=== PATIENT | male | born 1945 | race Caucasian/White ===

== ENCOUNTER 2020-11-24 09:13 | Outpatient (CLI) | payer MEDICARE, OTHER, SELFPAY | END 2020-11-24 09:14 | disposition home or self-care (01) | LOC: ANHCOVIDVC 09:13 | PROVIDERS: PCP Family Medicine | DX: Z23 Encounter for immunization (principal) | CPT/HCPCS: 0001A; 91300 ==

== ENCOUNTER 2020-12-15 09:09 | Outpatient (CLI) | payer MEDICARE, OTHER, SELFPAY | END 2020-12-15 09:10 | disposition home or self-care (01) | LOC: ANHCOVIDVC 09:09 | PROVIDERS: PCP Family Medicine | DX: Z23 Encounter for immunization (principal) | CPT/HCPCS: 0002A; 91300 ==

== ENCOUNTER 2025-04-12 12:36 | Inpatient (IN) | payer MEDICARE, MEDICAID, OTHER, SELFPAY ==
--- OUTSIDE RECORDS SUMMARY | 2024-04-19 09:25 | XMS_ITS | Encounter Summary ---
Author Name [facility] [place] Organization [facility] [place] [place] Address [address], [place] [address] Care Team Providers Care Structural Engineer Name Role Phone MAKI CHRIS Primary Care Provider Unavailabl e Insurance Providers: All historical and current Section Date Range: From patient's date of to the date document was created. This section includes the names of all active insurance providers for the patient. Insurance Provider Type of Coverage Plan Name Start of Policy Coverage End of Policy Coverage Group Number Member ID Insurance Provider's Telephone Number Policy Beck's Name Patient's Relationship to Policy Beck Selected Encounter This section includes the information on record at [place] for the Encounter. Date/Time Encounter Type Encounter Description Reason Pro vider Source Apr 19, 2024 02:25 PM Outpatient Encounter ADMIN PAT ACTIVTIES (MASNONCT) IHE Encounter Template Text not used by [place] Plan of Treatment: Future Appointments (+ 6 months) and Future Tests (+/- 45 days) The Plan of Treatment section includes future care activities for the patient from all [place] treatmentfacilities. This section includes future appointments and future orders which are active, pending or scheduled. Future Appointments This section includes appointments that were scheduled to occur 6 months from the date of the Encounter, up to a maximum of 20 appointments. The data comes from all [place] treatment facilities. Appointment Date/Time Appointment Type Appointme nt Facility Name Apr 26, 2024 11:00 AM AMBULATORY - NONE [facility] Jul 25, 2024 09:00 AM AMBULATORY - NONE [facility] Sep 10, 2024 11:20 AM AMBULATORY - NONE [facility] Advance Directives: All historical and current Section Date Range: From patient's date of to the date document was created. This section includes ALL of a patient's completed or amended [place] Advance and Rescinded Directives. The entries below indicate that a directive exists for the patient, but an actual copy is not included with this document. The data comes from all [place] facilities. Date Advance Directives Provider Source Feb 10, 2024 ADVANCE DIRECTIVE [facility] Encounter Notes: All associated encounter notes This section contains the clinical notes associated to the Encounter. Date/Time Encounter Note(s) Provider Source Apr 19, 2024 02:25 PM ADMINISTRATIVE NOT E: LOCAL TITLE: SCHEDULING NOTE ST STANDARD TITLE: ADMINISTRATIVE NOTE DATE OF NOTE: APR 19, 2024@14:25 ENTRY DATE: APR 19, 2024@14:25:11 AUTHOR: LORI WESTBROOK EXP COSIGNER: URGENCY: STATUS: COMPLETED Minimum Scheduling attempts to contact the [facility] have been made. RTC/Appt/Consult request will be discontinued after 14 days. Clinic: [facility] TK: Apr ADDITIONAL RESULTS FROM SCHEDULING ATTEMPTS: [facility] declined/refused-does not want care /deepak/ LORI WESTBROOK TE[employer]HE[employer] PRODUCTION MANUFACTURING WORKER Signed: 04/19/2024 14:25 LORI WESTBROOK [facility]
--- OUTSIDE RECORDS SUMMARY | 2024-09-10 06:20 | XMS_ITS | Encounter Summary ---
Author Name [facility] [place] Organization [facility] [place] Address [address] [place] [address] Care Team Providers Care Taxation Consultant Name Role Phone DOTMAKI ARTHUR Primary Care Provider Unavailabl e Insurance Providers: [...] section includes the information on record at [place] for the Encounter. Date/Time Encounter Type Encounter Description Reason Provider Source Sep 10, 2024 11:20 AM OFF/OP CNSLTJ NEW/EST MOD 40 ENDOCRINOLOGY ICD-10-CM E66.01 Morbid (severe) obesity due to excess calories CHRISTY MOYA Encounter Template Text not used by [place] Assessments - Encounter Diagnoses This section includes the primary and secondary diagnoses documented for the Encounter. Date/Time Primary/Secondary Diagnosis Diagnosis Name Provider Source Sep 11, 2024 07:55 AM PRIMARY Morbid (severe) obesity due to excess calories NIKKI LYONS [facility] Plan of Treatment: Future Appointments (+ 6 months) and Future Tests (+/- 45 days) The Plan of Treatment section includes future care activities for the patient [facility] This section includes future appointments and future orders which are active, pending or scheduled. Future Appointments This section includes appointments that were scheduled to occur 6 months from the date of the Encounter, up to a maximum of 20 appointments. The data comes from all [place] treatment facilities. Appointment Date/Time Appointment Type Appointme nt Facility Name Oct 31, 2024 08:30 AM AMBULATORY - NONE [facility] Jan 28, 2025 09:30 AM AMBULATORY - MEDICINE [facility] Feb 22, 2025 09:00 AM AMBULATORY - NONE [facility] Mar 04, 2025 02:00 PM AMBULATORY - SURGERY [facility] Vital Signs: All taken on the encounter date This section contains inpatient and outpatient Vital Signs collected on the date of the Encounter. Date/Time Temperature Pulse Blood Pressure Respiratory Rate SP02 Pain Height Weight Body Mass Index Source Sep 10, 2024 11:27 AM 97.9 108 132/84 20 95 0 285 39 [facility] Advance Directives: All historical and current Section Date Range: From patient's date of to the date document was created. This section includes ALL of a patient's completed or amended [place] Advance and Rescinded Directives. The entries below indicate that a directive exists for the patient, but an actual copy is not included with this document. The data comes from all [facility]. Date Advance Directives Provider Source Feb 10, 2024 ADVANCE DIRECTIVE GRADY HERNANDEZ [facility] Encounter Notes: All associated encounter notes This section contains the clinical notes associated to the Encounter. Date/Time Encounter Note(s) Provider Source Oct 18, 2024 12:06 PM PHYSICIAN LETTERS: LOCAL TITLE: PHYSICIAN LETTERS STANDARD TITLE: PHYSICIAN LETTERS DATE OF NOTE: OCT 18, 2024@12:06 ENTRY DATE: OCT 18, 2024@12:09:01 AUTHOR: HIPOLITO SALVADOR EXP COSIGNER: URGENCY: STATUS: COMPLETED [facility] [address] [place] [address] JAYLAN WISE [address] [place], [place] [id number] Dear Jaylan Wise: I am reaching out from the endocrinology team concerning the denial of wegovy for weight loss. There are oral medications for weight loss which can be considered in case you are willing to try one of those. I tried to reach you over the phone earlier today to discuss possible options. You can also go over these options on your next visit in November as well. Thank you, Dr. Salvador Sincerely, HIPOLITO SALVADOR ENDOCRINOLOGY FELLOW [facility]LAN [facility] Oct 16, 2024 01:00 PM ADDENDUM: LOCAL TITLE: Addendum STANDARD TITLE: ADDENDUM DATE OF NOTE: OCT 16, 2024@13:00:30 ENTRY DATE: OCT 16, 2024@13:00:31 AUTHOR: LAURYN SIGALA COSIGNER: URGENCY: STATUS: COMPLETED Returned a call from Mr. Wise and informed him the 09/10 PADR for Wegovy was declined. He's met with a creative coordinator and has another appointment with them on 10/31. He's to see JOHN PAUL aCllahan on 12/05. I asked him to let me alert the Endocrine team to his call, see if any oral Rx options are a possibility, and told him I'd call back with any update. /deepak/ Lauryn Sigala, RN, BSN REGISTERED NURSE Signed: 10/16/2024 13:03 Receipt Acknowledged By: 10/18/2024 12:05 /deepak/ HIPOLITO SALVADOR ENDOCRINOLOGY FELLOW 10/16/2024 20:09 /deepak/ CHRISTY GAYTAN Chief, Endocrinology 10/23/2024 09:58 /deepak/ MADELAINE Farley, MSN, RN Nurse Practitioner --- Original Document --- 09/10/24 ENDOCRINOLOGY OUTPATIENT CONSULT [facility]: ENDOCRINOLOGY OUTPATIENT VISIT HPI: JAYLAN WISE is a 79yo WHITE MALE 1995 kidney cancer s/p right nephrectomy [place] OA of knees. obesity venous stasis. BMI 38 129 kg NO LFTs available couldn't FIB-4 index. STOP-BAN points intermediate risk for moderate to severe REILLY. vet's daughter requesting weight loss medication, vet currently residing in long-term after a fall and subsequent hospital stay reports current weight >300 pounds with significant disability vet is essentially bedbound at this time known DJD of hips/knees. No history of kidney stones has lost about 30 lbs has been on physical therapy [place]. He needs knee replacement stop a pill because it was causing harm on his heart - Reported was on phentermine for about one month and then rehab MD discontinued. Vet reported today that he is allergic to peaches (gives him diarrhea). Vet currently at a SNF. He is getting all meals provided and on a regular diet. He is not making his own menu selections. He dislikes some of the food; avg. intake is 75-100% per meal. Fluid/Beverage intake: water; juice or Cristóbal-Aid with meals Food intake: consumes 3 meals/d and rarely snacks Breakfast: typically eggs, castillo/sausage; this AM had pancakes, sausage, and Cornflakes with milk Lunch: protein/vegetable/starch; vet does not recall what he ate yesterday Dinner: protein/vegetable/starch; last night had a ham sandwich and vegetable soup KNEE,RIGHT 3 VIEWS (RAD Detailed) CPT:88678 Proc Modifiers : RIGHT, LATERAL, Stand AP, [place] Reason for Study: chronic bilat knee pain Clinical History: Report Status: Verified Date Reported: OCT 20, 2023 Date Verified: OCT 20, 2023 Yeast Pusher E-Sig:/ES/RADHA NORMAN MD Report: 3 views COMPARISON: None No acute fracture or dislocation Mild tricompartmental osteoarthritis with joint space narrowing and osteophytes. Other: Chondrocalcinosis Impression: Tricompartmental osteoarthritis ROS: Constitutional: No fevers, chills or night sweats HEENT: No visual changes, hearing changes, sinus congestion, or sore throat CV: No chest pain, palpitations, dyspnea on exertion Respiratory: No shortness of breath, cough, or wheezing GI: No abdominal pain, nausea, vomiting, heartburn, diarrhea, constipation, melena, hematochezia : No hesitancy, urgency, no urinary frequency, nocturia, dysuria, hematuria, or incontinence Musculoskeletal: No joint pain or swelling Skin: No rashes or color changes Neuro: No headaches, lightheadedness, dizziness, focal weakness, or paresthesias Psych: Mood has been ___, denies depression and anxiety Endo: No symptoms of hypo/hyperthyroidism or hypo/hyperglycemia Allergies: PENICILLIN Medications: Active Outpatient Medications (excluding Supplies): Issue Date Status Last Fill Active Outpatient Medications Refills Expiration 1) ACETAMINOPHEN 325MG TAB Qty: 200 for 25 days ACTIVE Issue: 10/18/23 Sig: TAKE TWO TABLETS BY MOUTH FOUR TIMES A Refills: 4 Last : 10/19/23 DAY NEEDED CAUTION: DO NOT EXCEED 4000MG Expr : 10/18/24 PER DAY ACETAMINOPHEN (APAP) FROM ALL MEDS. Indication: FOR PAIN 2) CAPSAICIN 0.025% CREAM Qty: 60 for 30 days ACTIVE Issue: 10/18/23 Sig: APPLY LIBERALLY TO AFFECTED AREA(S) Refills: 3 Last : 10/19/23 FOUR TIMES A DAY NEEDED FOR EXTERNAL USE Expr : 10/18/24 ONLY. WASH HANDS AFTER APPLICATION. Indication: FOR PAIN 3) LIDOCAINE 5% OINT Qty: 35 for 30 days Sig: ACTIVE Issue: 10/18/23 APPLY LIBERALLY TO AFFECTED AREA(S) TWICE Refills: 5 Last : 10/19/23 DAILY NEEDED Expr : 10/18/24 Indication: FOR PAIN 4) PSYLLIUM ORAL PWD Qty: 1950 for 90 days Sig: ACTIVE Issue: 10/18/23 MIX AND DRINK 1 TABLESPOONFUL BY MOUTH ONCE Refills: 3 Last : 10/19/23 A DAY MIX IN GLASS OF WATER/JUICE. FLAVOR Expr : 10/18/24 SUBSTITUTIONS MAY/WILL OCCUR AND SPECIFIC VARIETIES WILL NOT BE PROVIDED. Indication: FOR FIBER SUPPLEMENTATION 5) ROSUVASTATIN CA 10MG TAB Qty: 45 for 90 days ACTIVE Issue: 10/18/23 Sig: TAKE ONE-HALF TABLET BY MOUTH EVERY Refills: 3 Last : 10/19/23 EVENING Expr : 10/18/24 Indication: FOR HIGH CHOLESTEROL 6) TRIAMCINOLONE ACETONIDE 0.1% OINT Qty: 454 ACTIVE Issue: 08/02/24 for 30 days Sig: APPLY SPARINGLY TO AFFECTED Refills: 3 Last : 08/02/24 AREA(S) EVERY MORNING (EXTERNAL USE ONLY) Expr : 08/03/25 Indication: FOR ATOPIC DERMATITIS Past Medical History: 1) HTN - Hypertension (SCT [id number]) 2) Morbid obesity 3) Personal history of primary malignant neoplasm of kidney SOCIAL HISTORY: Marital status: Served in [place]: ETOH: Occupation: FAMILY HISTORY: Mom: Dad: PHYSICAL EXAM: Vital Signs: Temperature: 97.9 F [36.6 C] (09/10/2024 11:27) Blood Pressure: 132/84 (09/10/2024 11:27) Pulse: 108 (09/10/2024 11:27) Respirations: 20 (09/10/2024 11:27) Weight: 285 lb [129.27 kg] (09/10/2024 11:27) Patient Weight History - Last Four 1. 285.0 lbs. / 129.3 kg. on SEP 10, 2024@11:27:17 2. 315.0 lbs. / 142.9 kg. on NOV 28, 2023@10:35:33 3. 323.0 lbs. / 146.5 kg. on OCT 18, 2023@13:27:16 4. 318.2 lbs. / 144.3 kg. on MAR 22, 2023@08:28:42 BMI: 38.7 GENERAL: No acute distress, Well developed, well nourished HEENT: EOMI, PERRL, sclera anicteric NECK: Supple, no cervical LAD, no thyromegaly CV: RRR, S1 S2, no S3, S4, murmur, no edema bilaterally RESP: regular, unlabored, clear to auscultation bilaterally GI: soft, non-tender, non-distended, +BS NEURO: strength equal bilaterally, patellar & Achilles reflex 2+ bilaterally PSYCH: pleasant, appropriate LABS: Comprehensive Metabolic Panel Results: SODIUM 139 mEq/L 03/22/2023 09:55 POTASSIUM 4.2 mEq/L 03/22/2023 09:55 CHLORIDE 105 mEq/L 03/22/2023 09:55 UREA NITROGEN 14 mg/dL 03/22/2023 09:55 CREATININE 1.12 mg/dL 03/22/2023 09:55 CALCIUM 9.8 mg/dL 03/22/2023 09:55 CARBON DIOXIDE 24 mEq/L 03/22/2023 09:55 GLUCOSE 98 mg/dL 03/22/2023 09:55 EGFR (CKD-EPI 2020) 68.1 03/22/2023 09:55 Hemoglobin: No HEMOGLOBIN EO data found Hematocrit: No HEMATOCRIT EO data found Vitamin D: VITAMIN D, 25-HYDROXY 33.3 ng/mL 03/22/2023 09:55 Phosphorus: No PHOSPHOROUS data found TSH: TSH 2.949 uIU/mL 03/22/2023 09:55 ____ Total T3: 0 ng/dl PSA: No PSA EO data found No TESTOSTERONE EO data found No PROLACTIN EO data found LH: ____ Glucose: GLUCOSE 98 mg/dL 03/22/2023 09:55 Hemoglobin A1C: HGA1C 5.5 % 03/22/2023 09:55 Microalb/creat ratio: No MICRAL/CREAT RATIO (STL) data found Lipid Panel: TRIGLYCERIDE 153 H mg/dL 03/22/2023 09:55 CHOLESTEROL 200 mg/dL 03/22/2023 09:55 HDL(New) 43 mg/dL 03/22/2023 09:55 CALCULATED LDL 126 mg/dL 03/22/2023 09:55 Assessment and plan: # obesity class 2 BMI 38 129 kg NO LFTs available couldn't FIB-4 index. STOP-BAN points intermediate risk for moderate to severe REILLY. needs knee replacement but he has to lose weight to get surgery OA of hip and knee, severe wheelchair bound due to severe OA. No history of kidney stones could consider Qysmia or contrave. Was on phentermine and physican stopped it due to risk of tachycardia/ and HTN but he did not have these side effects. Plan: start wegovy 0.25 mg weekly for 4 weeks LFTs RTC in 3 [facility] The patient was seen and plan was discussed with Dr. Davalos. Questions answered. Verbalizes understanding. /deepak/ NOLBERTO CAZARES Endocrinology Fellow Signed: 09/10/2024 16:02 /deepak/ CHRISTY GAYTAN Chief, Endocrinology Cosigned: 09/11/2024 07:55 SIGALA,LAURYN DODSON [facility] Sep 10, 2024 11:40 AM ENDOCRINOLOGY CONSULT: LOCAL TITLE: ENDOCRINOLOGY OUTPATIENT CONSULT [facility] STANDARD TITLE: ENDOCRINOLOGY CONSULT DATE OF NOTE: SEP 10, 2024@11:40 ENTRY DATE: SEP 10, 2024@11:40:45 AUTHOR: ANUM LYONS EXP COSIGNER: CHRISTY GAYTAN URGENCY: STATUS: COMPLETED ENDOCRINOLOGY OUTPATIENT CONSULT ST Has ADDENDA ENDOCRINOLOGY OUTPATIENT VISIT HPI: JAYLAN WISE is a 79yo WHITE MALE 1995 kidney cancer s/p right nephrectomy [place] OA of knees. obesity venous stasis. BMI 38 129 kg NO LFTs available couldn't FIB-4 index. STOP-BAN points intermediate risk for moderate to severe REILLY. vet's daughter requesting weight loss medication, vet currently residing in long-term after a fall and subsequent hospital stay reports current weight >300 pounds with significant disability vet is essentially bedbound at this time known DJD of hips/knees. No history of kidney stones has lost about 30 lbs has been on physical therapy at [place]. He needs knee replacement stop a pill because it was causing harm on his heart - Reported was on phentermine for about one month and then rehab MD discontinued. Vet reported today that he is allergic to peaches (gives him diarrhea). Vet currently at a SNF. He is getting all meals provided and on a regular diet. He is not making his own menu selections. He dislikes some of the food; avg. intake is 75-100% per meal. Fluid/Beverage intake: water; juice or Cristóbal-Aid with meals Food intake: consumes 3 meals/d and rarely snacks Breakfast: typically eggs, castillo/sausage; this AM had pancakes, sausage, and Cornflakes with milk Lunch: protein/vegetable/starch; vet does not recall what he ate yesterday Dinner: protein/vegetable/starch; last night had a ham sandwich and vegetable soup KNEE,RIGHT 3 VIEWS (RAD Detailed) CPT:23746 Proc Modifiers : RIGHT, LATERAL, Stand AP, [place] Reason for Study: chronic bilat knee pain Clinical History: Report Status: Verified Date Reported: OCT 20, 2023 Date Verified: OCT 20, 2023 Yeast Pusher E-Sig:/ES/RADHA NORMAN MD Report: 3 views COMPARISON: None No acute fracture or dislocation Mild tricompartmental osteoarthritis with joint space narrowing and osteophytes. Other: Chondrocalcinosis Impression: Tricompartmental osteoarthritis ROS: Constitutional: No fevers, chills or night sweats HEENT: No visual changes, hearing changes, sinus congestion, or sore throat CV: No chest pain, palpitations, dyspnea on exertion Respiratory: No shortness of breath, cough, or wheezing GI: No abdominal pain, nausea, vomiting, heartburn, diarrhea, constipation, melena, hematochezia : No hesitancy, urgency, no urinary frequency, nocturia, dysuria, hematuria, or incontinence Musculoskeletal: No joint pain or swelling Skin: No rashes or color changes Neuro: No headaches, lightheadedness, dizziness, focal weakness, or paresthesias Psych: Mood has been ___, denies depression and anxiety Endo: No symptoms of hypo/hyperthyroidism or hypo/hyperglycemia Allergies: PENICILLIN Medications: Active Outpatient Medications (excluding Supplies): Issue Date Status Last Fill Active Outpatient Medications Refills Expiration 1) ACETAMINOPHEN 325MG TAB Qty: 200 for 25 days ACTIVE Issue: 10/18/23 Sig: TAKE TWO TABLETS BY MOUTH FOUR TIMES A Refills: 4 Last : 10/19/23 DAY NEEDED CAUTION: DO NOT EXCEED 4000MG Expr : 10/18/24 PER DAY ACETAMINOPHEN (APAP) FROM ALL MEDS. Indication: FOR PAIN 2) CAPSAICIN 0.025% CREAM Qty: 60 for 30 days ACTIVE Issue: 10/18/23 Sig: APPLY LIBERALLY TO AFFECTED AREA(S) Refills: 3 Last : 10/19/23 FOUR TIMES A DAY NEEDED FOR EXTERNAL USE Expr : 10/18/24 ONLY. WASH HANDS AFTER APPLICATION. Indication: FOR PAIN 3) LIDOCAINE 5% OINT Qty: 35 for 30 days Sig: ACTIVE Issue: 10/18/23 APPLY LIBERALLY TO AFFECTED AREA(S) TWICE Refills: 5 Last : 10/19/23 DAILY NEEDED Expr : 10/18/24 Indication: FOR PAIN 4) PSYLLIUM ORAL PWD Qty: 1950 for 90 days Sig: ACTIVE Issue: 10/18/23 MIX AND DRINK 1 TABLESPOONFUL BY MOUTH ONCE Refills: 3 Last : 10/19/23 A DAY MIX IN GLASS OF WATER/JUICE. FLAVOR Expr : 10/18/24 SUBSTITUTIONS MAY/WILL OCCUR AND SPECIFIC VARIETIES WILL NOT BE PROVIDED. Indication: FOR FIBER SUPPLEMENTATION 5) ROSUVASTATIN CA 10MG TAB Qty: 45 for 90 days ACTIVE Issue: 10/18/23 Sig: TAKE ONE-HALF TABLET BY MOUTH EVERY Refills: 3 Last : 10/19/23 EVENING Expr : 10/18/24 Indication: FOR HIGH CHOLESTEROL 6) TRIAMCINOLONE ACETONIDE 0.1% OINT Qty: 454 ACTIVE Issue: 08/02/24 for 30 days Sig: APPLY SPARINGLY TO AFFECTED Refills: 3 Last : 08/02/24 AREA(S) EVERY MORNING (EXTERNAL USE ONLY) Expr : 08/03/25 Indication: FOR ATOPIC DERMATITIS Past Medical History: 1) HTN - Hypertension (SCT [id number]) 2) Morbid obesity 3) Personal history of primary malignant neoplasm of kidney SOCIAL HISTORY: Marital status: Served in [place]: ETOH: Occupation: FAMILY HISTORY: Mom: Dad: PHYSICAL EXAM: Vital Signs: Temperature: 97.9 F [36.6 C] (09/10/2024 11:27) Blood Pressure: 132/84 (09/10/2024 11:27) Pulse: 108 (09/10/2024 11:27) Respirations: 20 (09/10/2024 11:27) Weight: 285 lb [129.27 kg] (09/10/2024 11:27) Patient Weight History - Last Four 1. 285.0 lbs. / 129.3 kg. on SEP 10, 2024@11:27:17 2. 315.0 lbs. / 142.9 kg. on NOV 28, 2023@10:35:33 3. 323.0 lbs. / 146.5 kg. on OCT 18, 2023@13:27:16 4. 318.2 lbs. / 144.3 kg. on MAR 22, 2023@08:28:42 BMI: 38.7 GENERAL: No acute distress, Well developed, well nourished HEENT: EOMI, PERRL, sclera anicteric NECK: Supple, no cervical LAD, no thyromegaly CV: RRR, S1 S2, no S3, S4, murmur, no edema bilaterally RESP: regular, unlabored, clear to auscultation bilaterally GI: soft, non-tender, non-distended, +BS NEURO: strength equal bilaterally, patellar & Achilles reflex 2+ bilaterally PSYCH: pleasant, appropriate LABS: Comprehensive Metabolic Panel Results: SODIUM 139 mEq/L 03/22/2023 09:55 POTASSIUM 4.2 mEq/L 03/22/2023 09:55 CHLORIDE 105 mEq/L 03/22/2023 09:55 UREA NITROGEN 14 mg/dL 03/22/2023 09:55 CREATININE 1.12 mg/dL 03/22/2023 09:55 CALCIUM 9.8 mg/dL 03/22/2023 09:55 CARBON DIOXIDE 24 mEq/L 03/22/2023 09:55 GLUCOSE 98 mg/dL 03/22/2023 09:55 EGFR (CKD-EPI 2020) 68.1 03/22/2023 09:55 Hemoglobin: No HEMOGLOBIN EO data found Hematocrit: No HEMATOCRIT EO data found Vitamin D: VITAMIN D, 25-HYDROXY 33.3 ng/mL 03/22/2023 09:55 Phosphorus: No PHOSPHOROUS data found TSH: TSH 2.949 uIU/mL 03/22/2023 09:55 ____ Total T3: 0 ng/dl PSA: No PSA EO data found No TESTOSTERONE EO data found No PROLACTIN EO data found LH: ____ Glucose: GLUCOSE 98 mg/dL 03/22/2023 09:55 Hemoglobin A1C: HGA1C 5.5 % 03/22/2023 09:55 Microalb/creat ratio: No MICRAL/CREAT RATIO (STL) data found Lipid Panel: TRIGLYCERIDE 153 H mg/dL 03/22/2023 09:55 CHOLESTEROL 200 mg/dL 03/22/2023 09:55 HDL(New) 43 mg/dL 03/22/2023 09:55 CALCULATED LDL 126 mg/dL 03/22/2023 09:55 Assessment and plan: # obesity class 2 BMI 38 129 kg NO LFTs available couldn't FIB-4 index. STOP-BAN points intermediate risk for moderate to severe REILLY. needs knee replacement but he has to lose weight to get surgery OA of hip and knee, severe wheelchair bound due to severe OA. No history of kidney stones could consider Qysmia or contrave. Was on phentermine and physican stopped it due to risk of tachycardia/ and HTN but he did not have these side effects. Plan: start wegovy 0.25 mg weekly for 4 weeks LFTs RTC in 3 mon The patient was seen and plan was discussed with Dr. Davalos. Questions answered. Verbalizes understanding. /deepak/ NOLBERTO CAZARES Endocrinology Fellow Signed: 09/10/2024 16:02 /deepak/ CHRISTY GAYTAN Chief, Endocrinology Cosigned: 09/11/2024 07:55 10/16/2024 ADDENDUM STATUS: COMPLETED Returned a call from Mr. Wise and informed him the 09/10 PADR for Wegovy was declined. He's met with a creative coordinator and has another appointment with them on 10/31. He's to see SHELLFISH MANAGER [place] on 12/05. I asked him to let me alert the Endocrine team to his call, see if any oral Rx options are a possibility, and told him I'd call back with any update. /deepak/ Lauryn Sigala, RN, BSN REGISTERED NURSE Signed: 10/16/2024 13:03 Receipt Acknowledged By: * AWAITING SIGNATURE * HIPOLITO SALVADOR * AWAITING SIGNATURE * CHRISTY GAYTAN * AWAITING SIGNATURE * [place] CALL[place]AN [facility]
--- OUTSIDE RECORDS SUMMARY | 2024-09-11 06:28 | XMS_ITS | Encounter Summary ---
Author Name [facility] [place] [facility] [place] Address [address] [place] [address] Care Team Providers Care Health Insurance Agent Name Role Phone DOT, MAKI Primary Care Provider Unavailabl e Insurance Providers: [...] section includes the information on record at [place] for the Encounter. Date/Time Encounter Type Encounter Description Reason Provider Source Sep 11, 2024 11:28 AM [facility] OL DIG ASSMT&MGMT 20 CLINICAL PHARMACY ICD-10-CM E66.01 Morbid (severe) obesity due to excess calories EMILY MCGOWAN E Encounter Template Text not used by [place] Assessments - Encounter Diagnoses This section includes the primary and secondary diagnoses documented for the Encounter. Date/Time Primary/Secondary Diagnosis Diagnosis Name Provider Source Sep 11, 2024 12:27 PM PRIMARY Morbid (severe) obesity due to excess calories EMILY MCGOWAN [facility] Plan of Treatment: Future Appointments (+ 6 months) and Future Tests (+/- 45 days) The Plan of Treatment section includes future care activities for the patient from all [place] [facility]. This section includes future appointments and future orders which are active, pending or scheduled. Future Appointments This section includes appointments that were scheduled to occur 6 months from the date of the Encounter, up to a maximum of 20 appointments. The data comes from all [facility]. Appointment Date/Time Appointment Type Appointme nt Facility Name Oct 31, 2024 08:30 AM AMBULATORY - NONE [facility] Jan 28, 2025 09:30 AM AMBULATORY - MEDICINE [facility] Feb 22, 2025 09:00 AM AMBULATORY - NONE [facility] Mar 04, 2025 02:00 PM AMBULATORY - SURGERY [facility] Advance Directives: All historical and current Section Date Range: From patient's date of to the date document was created. This section includes ALL of a patient's completed or amended [place] Advance and Rescinded Directives. The entries below indicate that a directive exists for the patient, but an actual copy is not included with this document. The data comes from all [facility]. Date Advance Directives Provider Source Feb 10, 2024 ADVANCE DIRECTIVE GRADY HERNANDEZ [facility] Encounter Notes: All associated encounter notes This section contains the clinical notes associated to the Encounter. Date/Time Encounter Note(s) Provider Source Sep 11, 2024 11:28 AM PHARMACY CONSULT: LOCAL TITLE: PHARMACY PRIOR APPROVAL CONSULT [facility] STANDARD TITLE: PHARMACY CONSULT DATE OF NOTE: SEP 11, 2024@11:28 ENTRY DATE: SEP 11, 2024@11:28:42 AUTHOR: EMILY MCGOWAN EXP COSIGNER: URGENCY: STATUS: COMPLETED The medical record has been reviewed with regard to this prior authorization drug request. Medication requested: SEMAGLUTIDE WL 0.25MG/0.5ML PEN 0.5ML Medication indication: weight management Medical history relevant to this request: Patient Weight History - Last Four 1. 285.0 lbs. / 129.3 kg. on SEP 10, 2024@11:27:17 2. 315.0 lbs. / 142.9 kg. on NOV 28, 2023@10:35:33 3. 323.0 lbs. / 146.5 kg. on OCT 18, 2023@13:27:16 4. 318.2 lbs. / 144.3 kg. on MAR 22, 2023@08:28:42 Baseline weight: 285 lb [129.27 kg] (09/10/2024 11:27) BMI: 38.7 HGA1C 5.5 % 03/22/2023 09:55 Tier 1a (defined by VISN 15 [facility] Scarce Resource Workgroup): Patients with lifethreatening weight related condition or experiencing treatment delay for a life threatening condition due to excess weight, for whom treatment delay would likely increase mortality risk within the next year including the following disease states: no Patient needing to lose weight to qualify for Transplant NO Non-alcoholic fatty liver disease with Stage 4 fibrosis no Boo's Esophagus no Patients with heart failure with at least one hospital admission within the last 12 months no Obesity hypoventilation syndrome no Patients with hip AVN classified as FICAT 3 or 4 with a BMI of 39 or more no Patients with Hip Osteoarthritis Classified as Kellgren-Jean-Pierre stage 3,4 (moderate to severe findings on radiology report) with a BMI of 39 or more no Patients with ESRD, on dialysis Any other weight related medical condition which is either life threatening or where treatment delay will likely increase mortality within one year. This will be decided on a eghb-jy-ltuw basis Tier 1b (Guidance for Managing Scarce Weight Management Medication Resources in [place]): O Patients without diabetes O Age > 45 years old O Established cardiovascular disease defined as prior myocardial infarction; prior ischemic or hemorrhagic stroke; or symptomatic PAD with an ankle-brachial index <0.85, peripheral arterial revascularization procedure or amputation due to atherosclerotic disease O BMI =/> 27 Please note pt does not meet criteria for use. - Per VISN 15, glp1 agonist for weight loss much fall under Tier 1a and Tier 1b - Pt currently does not meet Tier 1a criteria for glp1 agonist. The request does not meet criteria - Compelling evidence for the requested indication is lacking TIME REVIEWING CHART:15. (minutes) /deepak/ Emily Mcgowan, PharmD, BCACP, [facility] TELEHEALTH CLINICAL PHARMACIST Signed: 09/11/2024 12:27 Receipt Acknowledged By: 09/13/2024 16:29 /deepak/ NOLBERTO CAZARES Endocrinology Fellow EMILY MCGOWAN [facility]
--- OUTSIDE RECORDS SUMMARY | 2025-01-28 04:30 | XMS_ITS ---
Author Name [facility] [place] Address [address] [place] [address] Care Team Providers Care Digital Artist Name Role Phone MAKI CHRIS Primary Care [...] section includes the information on record at [place] for the Encounter. Date/Time Encounter Type Encounter Description Reason Provider Source Jan 28, 2025 09:30 AM OFFICE O/P EST MOD 30 MIN ENDOCRINOLOGY ICD-10-CM E66.812 Obesity, class 2 ELENA ANTONIO IHJosselyn Encounter Template Text not used by [place] Assessments - Encounter Diagnoses This section includes the primary and secondary diagnoses documented for the Encounter. Date/Time Primary/Secondary Diagnosis Diagnosis Name Provider Source Jan 28, 2025 10:11 AM PRIMARY Obesity, class 2 ELENA ANTONIO [facility] Jan 28, 2025 10:11 AM SECONDARY Pain in unspecified hip ELENA ANTONIO [facility] Plan of Treatment: Future Appointments (+ 6 months) and Future Tests (+/- 45 days) The Plan of Treatment section includes future care activities for the patient from all [place] [facility]. This section includes future appointments and future orders which are active, pending or scheduled. Future Appointments This section includes appointments that were scheduled to occur 6 months from the date of the Encounter, up to a maximum of 20 appointments. The data comes from all [facility]. Appointment Date/Time Appointment Type Appointme nt Facility Name Feb 22, 2025 09:00 AM AMBULATORY - NONE [facility] Mar 04, 2025 02:00 PM AMBULATORY - SURGERY . [facility] Mar 28, 2025 11:00 AM AMBULATORY - SURGERY [facility] May 08, 2025 09:00 AM AMBULATORY - NONE [facility] May 24, 2025 08:30 AM AMBULATORY - NONE [facility] May 30, 2025 09:00 AM AMBULATORY - MEDICINE [facility] Active, Pending, and Scheduled Orders This section includes a listing of several types of active, pending, and scheduled orders, including clinic medications orders, diagnostic test orders, procedure orders and consult orders; where the start date of the order is 45 days before the date of the Encounter or 45 days after the date of theEncounter. The data comes from all [facility]. Test Date/Time Test Type Test Details Facility Name Mar 04, 2025 02:42 PM Consult Order DENTAL ORT HOPEDIC SURGERY OUTPT [facility] Cons Hot Plate Plywood Press Feeder's Choice [facility] Vital Signs: All taken on the encounter date This section contains inpatient and outpatient Vital Signs collected on the date of the Encounter. Date/Time Temperature Pulse Blood Pressure Respiratory Rate SP02 Pain Height Weight Body Mass Index Source Jan 28, 2025 09:04 AM 98 102 137/94 20 96 275.6 37 [facility] Advance Directives: All historical and current Section Date Range: From patient's date of to the date document was created. This section includes ALL of a patient's completed or amended [place] Advance and Rescinded Directives. The entries below indicate that a directive exists for the patient, but an actual copy is not included with this document. The data comes from all [place] facilities. Date Advance Directives Provider Source Feb 10, 2024 ADVANCE DIRECTIVE [facility]Y [facility] Radiology Reports: +/- 30 days of the encounter Radiology Reports For cases when an order for radiology services may have been completed prior to the date of the Encounter, the report list includes the Radiology Reports that were completed up to 30 days before dateof the Encounter. For cases when an order for radiology services may have been completed after the date of the Encounter, the report list also includes the Radiology Reports that were completed up to30 days after date of the Encounter. The data comes from all [place] treatment facilities. Date/Time Radiology Report Provider Source Jan 28, 2025 10:10 AM HIPS, BILAT, MIN O F 5 VIEWS, W OR W/O PELVIS: JAYLAN OLIVEIRA [id number] -[id number] M Exm Date: JAN 28, 2025@10:10 Req Phys: BOSTON ANTONIO Pat Loc: [facility]-ENDOCRINOLOGY PRACTICE OFFICE ASSOCIATE 4 (Req'g L Img Loc: [facility]-MAIN RADIOLOGY SUITE Service: [facility], [address] [address] THIS IS AN AMENDED REPORT (Case [id number] COMPLETE) HIPS, BILAT, MIN OF 5 VIEWS, W OR(RAD Detailed) CPT:58317 Proc Modifiers : AP Pelvis, Frog Reason for Study: bilateral hip pain Clinical History: if arthritis present, please include kellgren-carolyn stagiung. thank you Report Status: Verified Date Reported: JAN 29, 2025 Date Verified: JAN 29, 2025 All Around Gear Machine Operator E-Sig:/ES/SOLA DAWN MD Report: Case #[id number]. Bilateral hip examination. Finding: AP, frog leg lateral and the crosstable lateral views of the hip examination bilaterally shows marked joint space narrowing and marginal osteophytic spurs at the hip bilaterally. No fracture dislocation. Flattening of the superior aspect of the left femoral head and to mild extent the right femoral head. Multiple subchondral cystic changes seen in the femoral head bilaterally. No radiopaque foreign body or abnormal calcification. Addendum: Addendum report. Finding: Advanced osteoarthritic change the hip bilaterally with Kellgren and Carolyn classification grade 4. Impression: Advanced osteoarthritic change at the hip bilaterally left more than the right. No previous study is available for comparison. 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 Primary Interpreting Staff: SOLA DAWN MD, Staff Physician - Radiologist (All Around Gear Machine Operator) /SOLA SORIA [facility] Encounter Notes: All associated encounter notes This section contains the clinical notes associated to the Encounter. Date/Time Encounter Note(s) Provider Source Jan 28, 2025 09:37 AM [facility]Y [facility]P [facility] NOTE: LOCAL TITLE: ENDOCRINOLOGY OUTPATIENT FOLLOW UP ST STANDARD TITLE: ENDOCRINOLOGY OUTPATIENT NOTE DATE OF NOTE: JAN 28, 2025@09:37 ENTRY DATE: JAN 28, 2025@09:37:16 AUTHOR: BOSTON ANTONIO EXP COSIGNER: URGENCY: STATUS: COMPLETED ENDOCRINOLOGY FOLLOW UP Date of visit: JAN 28, 2025 SUBJECTIVE Source(s) of history: Patient and/or other Reliability of source(s): Reliable CHIEF COMPLAINT: ROXANNEJAYLAN MORALES is a 79-year-old RACE UNKNOWN MALE with a previous medical history of hypertension, kidney cancer, and morbid obesity that presents today for obesity/weight management LAST PLAN: # obesity class 2 BMI 38 129 [...] for 4 weeks LFTs RTC in 3 [facility] INTERIM HISTORY: Today's weight: 275.6 What have you tried in the past/ are you currently trying: - Diet: Meets with registered dietitian -Limited in terms of what he can control because he lives in a intermediate - Exercise: Limited due to long-term hip pain - Lifestyle changes/ life events: Lives in a intermediate - Current medication regimen: None What are your goals for weight loss (why do you want to lose weight/ why now?/what's the motivation): Sleepy Eye was told years ago that he needs a hip replacement, but was also asked to lose weight to qualify. He states this was many years ago and he does not remember who told him he needed to lose weight. HISTORY: Medical History: 1) HTN - Hypertension ([facility] [id number]) 2) Morbid obesity 3) Personal history of primary malignant neoplasm of kidney ROS: Negative except as noted in the HPI Active Outpatient Medications (including Supplies): TRIAMCINOLONE ACETONIDE 0.1% OINT APPLY SPARINGLY TO ACTIVE AFFECTED AREA(S) EVERY MORNING (EXTERNAL USE ONLY) Indication: FOR ATOPIC DERMATITIS I have reviewed current medications w/ at this visit. Efficacy and side effects of the medications were reviewed. Sleepy Eye denies questions, concerns, or problems with medications unless addressed in notes above. Allergies/ Intolerances: PENICILLIN OBJECTIVE --------- Records reviewed from consulting providers Vitals: Temperature:98 F [36.7 C] (01/28/2025 09:04) HR: 102 (01/28/2025 09:04) BP: Measurement DT BP 01/28/2025 09:04 137/94 09/10/2024 11:27 132/84 11/28/2023 10:35 126/72 Weight: 275.6 lb [125.01 kg] (01/28/2025 09:04) Patient Weight History - Last Four 1. 275.6 lbs. / 125.0 kg. on JAN 28, 2025@09:04:02 2. 285.0 lbs. / 129.3 kg. on SEP 10, 2024@11:27:17 3. 315.0 lbs. / 142.9 kg. on NOV 28, 2023@10:35:33 4. 323.0 lbs. / 146.5 kg. on OCT 18, 2023@13:27:16 BMI: 37.5 PHYSICAL EXAM: General: no distress, wel-nourished, oriented x3, normal mood and affet Skin: good turgor, absent of rash, Hair: Normal texture and distribution Nails: Normal color, no deformities HEENT: normocephalic, atraumatic, no obvious masses or lesions, vision intact, hearing intact, mucous membrane moist without lesions, neck is supple without lesions or adenopathy Heart: S1, S2, regular R&R, no murmur or gallop Lungs: CTAB, regular, unlabored Abdomen: Bowel sounds present, no masses or tenderness Extremities:No amputations or deformities Musculoskeletal: normal gait, no obvious defects with movementof extremities Neurologic: CN 2-12 normal, sensations to touch and proprioception normal Psych: oriented x3, momory intact, judgement, insight, and mood within normal limits Labs: CBC: No CBC EO data found CMP: No data available for: CREATININE UREA NITROGEN GLUCOSE SODIUM POTASSIUM CHLORIDE CARBON DIOXIDE CALCIUM PROTEIN ALBUMIN TOTAL BILIRUBIN ALKALINE PHOSPHATASE AST/SGOT ALT/SGPT EGFR (CKD-EPI 2020) VITAMIN D (25-HYDROXY) DO NOT USE TESTOSTERONE, TOTAL HGA1C B12 TSH Lipid: TRIGLYCERIDE 153 H mg/dL 03/22/2023 09:55 CHOLESTEROL 200 mg/dL 03/22/2023 09:55 HDL(New) 43 mg/dL 03/22/2023 09:55 CALCULATED LDL 126 mg/dL 03/22/2023 09:55 TSH: No TSH (1YR) EO data found A1C: SLT - Lab Tests Selected Collection DT Specimen Test Name Result Units Ref Range 03/22/2023 09:55 BLOOD HGA1C 5.5 % 4.0 - 6.0 ASSESSMENT & PLAN 1. Obesity/ weight management Today's weight = 275.6 -BMI = 37.46 Hailey states the main motivation behind his weight loss is to qualify for hip replacement surgery. He states he met with somebody years ago and they told him that he needed to lose weight. They did not give him a goal weight, nor did they ever schedule follow-up. At the time was morbidly obese, during today's meeting BMI = 37.46. may qualify for hip replacement at this time Plan: -Given history of osteoarthritis of his hip, may qualify for GLP-1 therapy -Sent for 2 views of bilateral hips, should he have osteoarthritis with kellgren-carolyn stage III or IV, will prescribe Wegovy therapy -Should he not qualify, will send Qsymia therapy instead. -Continue to meet with registered dietitian -Continue to exercise to tolerable level -Return to clinic in 4 to 5 months 2. Bilateral hip pain -Sent for two-view of bilateral hips -Consult placed for orthopedic surgery Education about next steps reviewed with patient. All additional questions answered during visit today Time spent with patient/caregiver: I personally spent 30 minutes today. this time includes preparing to see the patient (e.g. reviewing chart, lab results, medications, etc..), obtaining and/or reviewing history, performing medically necessary and appropriate examination/evaluation, counseling and educating the patient/caregiver, ordering medications, tests, or procedures, documenting in the patient record, and communicating results to the patient/caregiver. RTC: - Order placed, patient to be called for scheduling at later date Pt verbalized understanding and had no further questions during today's meeting Patient case discussed with Endocrinology staff /deepak/ MADELAINE Farley, MSN, RN Nurse Practitioner Signed: 01/28/2025 10:11 BOSTON ANTONIO [facility]
--- OUTSIDE RECORDS SUMMARY | 2025-01-30 04:44 | XMS_ITS | Encounter Summary ---
Author Name [place] Address [address] [place] [address] Care Team Providers Care Project Internship Name Role Phone DOT, MAKI Primary Care [...] section includes the information on record at [place] for the Encounter. Date/Time Encounter Type Encounter Description Reason Provider Source Jan 30, 2025 09:44 AM [facility] OL DIG ASSMT&MGMT 5-10 CLINICAL PHARMACY ICD-10-CM E66.01 Morbid (severe) obesity due to excess calories YARELY DIETRICH Encounter Template Text not used by CT Assessments - Encounter Diagnoses This section includes the primary and secondary diagnoses documented for the Encounter. Date/Time Primary/Secondary Diagnosis Diagnosis Name Provider Source Jan 30, 2025 09:54 AM PRIMARY Morbid (severe) obesity due to excess calories YARELY DIETRICH [facility] Plan of Treatment: Future Appointments (+ 6 months) and Future Tests (+/- 45 days) The Plan of Treatment section includes future care activities for the patient [facility] all [facility]. This section includes future appointments and future orders which are active, pending or scheduled. Future Appointments This section includes appointments that were scheduled to occur 6 months from the date of the Encounter, up to a maximum of 20 appointments. The data comes from all [facility]. Appointment Date/Time Appointment Type Appointme nt Facility Name Feb 22, 2025 09:00 AM AMBULATORY - NONE [facility] Mar 04, 2025 02:00 PM AMBULATORY - SURGERY [facility] Mar 28, 2025 11:00 AM AMBULATORY - SURGERY [facility] May 08, 2025 09:00 AM AMBULATORY - NONE [facility] May 24, 2025 08:30 AM AMBULATORY NONE [facility] May 30, 2025 09:00 AM AMBULATORY - MEDICINE [facility] Active, Pending, and Scheduled Orders This section includes a listing of several types of active, pending, and scheduled orders, including clinic medications orders, diagnostic test orders, procedure orders and consult orders; where the start date of the order is 45 days before the date of the Encounter or 45 days after the date of theEncounter. The data comes from all [facility]. Test Date/Time Test Type Test Details Facility Name Mar 04, 2025 02:42 PM Consult Order DENTAL ORT HOPEDIC SURGERY OUTPT [facility] Cons Personal Lines Insurance Advisor's Choice [facility] Advance Directives: All historical and current Section Date Range: From patient's date of to the date document was created. This section includes ALL of a patient's completed or amended CT Advance and Rescinded Directives. The entries below indicate that a directive exists for the patient, but an actual copy is not included with this document. The data comes from all [facility]. Date Advance Directives Provider Source Feb 10, 2024 ADVANCE DIRECTIVE GRADY HERNANDEZ Gael [facility] Radiology Reports: +/- 30 days of the [...] the Encounter. The data comes from all CT treatment facilities. Date/Time Radiology Report Provider Source Jan 28, 2025 10:10 AM HIPS, BILAT, MIN O F 5 VIEWS, W OR W/O PELVIS: JAYLAN OLIVEIRA [id number] -1945 M Exm Date: JAN 28, 2025@10:10 Req Phys: MARCORONAKBOSTON GUEVARA Pat Loc: [facility]-ENDOCRINOLOGY SCRIBING MACHINE OPERATOR 4 (Req'g L Img Loc: -MAIN RADIOLOGY SUITE Service: [facility], [address] [address] THIS IS AN AMENDED REPORT (Case 521 COMPLETE) HIPS, BILAT, MIN OF 5 VIEWS, W OR(RAD Detailed) CPT:40720 Proc Modifiers : AP Pelvis, Frog Reason for Study: bilateral hip pain Clinical History: if arthritis present, please include kellgren-carolyn stagiung. thank you Report Status: Verified Date Reported: JAN 29, 2025 Date Verified: JAN 29, 2025 Microfiche Duplicator E-Sig:/ES/SOLA DAWN MD Report: Case #[id number]. Bilateral [...] SOLA DAWN MD, Staff Physician - Radiologist (Microfiche Duplicator) /SOLA SORIA [facility] Encounter Notes: All associated encounter notes This section contains the clinical notes associated to the Encounter. Date/Time Encounter Note(s) Provider Source Jan 30, 2025 09:44 AM PHARMACY CONSULT: LOCAL TITLE: PHARMACY PRIOR APPROVAL CONSULT ST STANDARD TITLE: PHARMACY CONSULT DATE OF NOTE: JAN 30, 2025@09:44 ENTRY DATE: JAN 30, 2025@09:44:34 AUTHOR: YARELY DIETRICH EXP COSIGNER: URGENCY: STATUS: COMPLETED The medical record has been reviewed with regard to this prior authorization drug request. Medication requested: SEMAGLUTIDE WL 0.25MG/0.5ML PEN 0.5ML Medication indication: Weight Management Medical history relevant to this request: Pt is a 79 yo male w/ hx obesity followed by endocrinology for weight management. Provider requesting WMM w/ semaglutide. Meets CLI component w/ ongoing RD appts Meets Tier 1A criteria w/ Kellgren and Carolyn classification grade 4 osteoarthritis, baseline BMI >39, lost weight prior to med initiation with ongoing nutritional efforts Per consult, patient does not have exclusions or contraindications to use. Baseline weight for renewal: 275.6 lbs (01/28/25) The request is approved x 6 months for titration. Orders placed for 0.25mg weekly x 4 weeks with zero refills and 0.5mg weekly with 4 refills suspended out for 28 days. Please enter further dose titrations directly in CPRS by editing the order. - No formulary-preferred alternative TIME REVIEWING CHART: 10 minutes /deepak/ YARELY DIETRICH Clinical Log Sawyer Signed: 01/30/2025 09:54 YARELY DIETRICH [facility]
--- OUTSIDE RECORDS SUMMARY | 2025-03-04 09:00 | XMS_ITS | Encounter Summary ---
Author Name [facility] [place] Address [address] [place] [address] Care Team Providers Care Foreign Collection Clerk Name Role Phone DOT, MAKI Primary Care [...] section includes the information on record at [place] for the Encounter. Date/Time Encounter Type Encounter Description Reason Provider Source Mar 04, 2025 02:00 PM OFF/OP CNSLTJ NEW/EST MOD 40 ORTHO/JOINT SURG ICD-10-CM M16.0 Bilateral primary osteoarthritis of hip DEBI DAIGLE SA E Encounter Template Text not used by [place] Assessments - Encounter Diagnoses This section includes the primary and secondary diagnoses documented for the Encounter. Date/Time Primary/Secondary Diagnosis Diagnosis Name Provider Source Mar 04, 2025 02:46 PM PRIMARY Bilateral primary osteoarthritis of hip DANIEL DAIGLE [facility] Plan of Treatment: Future Appointments (+ 6 months) and Future Tests (+/- 45 days) The Plan of Treatment section includes future care activities for the patient from all [place] [facility]. This section includes future appointments and future orders which are active, pending or scheduled. Future Appointments This section includes appointments that were scheduled to occur 6 months from the date of the Encounter, up to a maximum of 20 appointments. The data comes from all [facility]. Appointment Date/Time Appointment Type Appointme nt Facility Name Mar 28, 2025 11:00 AM AMBULATORY - SURGERY [facility] Alonso [facility] May 08, 2025 09:00 AM AMBULATORY - NONE [facility] May 24, 2025 08:30 AM AMBULATORY - NONE [facility] May 30, 2025 09:00 AM AMBULATORY - MEDICINE [facility] Active, Pending, and Scheduled Orders This section includes a listing of several types of active, pending, and scheduled orders, including clinic medications orders, diagnostic test orders, procedure orders and consult orders; where the start date of the order is 45 days before the date of the Encounter or 45 days after the date of theEncounter. The data comes from all [facility]. Test Date/Time Test Type Test Details Facility Name Mar 04, 2025 02:42 PM Consult Order DENTAL ORT HOPEDIC SURGERY OUTPT [facility] [employer] [facility] Lab Results: +/- 30 days of the encounter This section includes the Chemistry and Hematology Lab Results on record with [place] for the patient. Radiology Reports and Pathology Reports are provided separately, in subsequent sections. Lab Results This section contains the Chemistry/Hematology Results that were resulted 30 days before or 30 daysafter the date of the Encounter. Date/Time Source Result Type Result - Unit Interpretation Reference Range Specimen Type Comment Mar 04, 2025 03:12 PM [facility] VITAMIN D, 25-HYDROXY SERUM Specimen Type: SERUM No comment entered. Ordering Provider: MAKI CHRIS Report Released Date/Time: Feb 27, 2025 09:40 AM Reporting Lab: [facility] [address] [facility] [address] Performing Lab: [address] [address] VITAMIN D, 25-HYDROXY 70.9 ng/mL 30-96 Mar 04, 2025 03:12 PM [facility] LIPID PANEL (STL) PLASMA Specimen Type: PLASM A No comment entered. Ordering Provider: MAKI CHRIS Report Released Date/Time: Feb 27, 2025 09:40 AM Reporting Lab: [facility] [address] [facility] [address] Performing Lab: [place] [address] [facility] [address] CHOLESTEROL 129 mg/dL 0-200 TRIGLYCERIDE 113 mg/dL 0-150 CALCULATED LDL 70 mg/dL HDL(New) 36 mg/dL L >40 Mar 04, 2025 03:12 PM [facility] HGA1C BLOOD Specimen Type: BLOOD No comment entered. Ordering Provider: MAKI CHRIS Report Released Date/Time: Feb 27, 2025 09:40 AM Reporting Lab: [facility] [address] Performing Lab: [place] [address] [facility] [address] HGA1C 5.6 4.0-6.0 Vital Signs: All taken on the encounter date This section contains inpatient and outpatient Vital Signs collected on the date of the Encounter. Date/Time Temperature Pulse Blood Pressure Respiratory Rate SP02 Pain Height Weight Body Mass Index Source Mar 04, 2025 01:43 PM 98.2 F 86 /min 123/83 mm[Hg] 20 /min 96 % 2 [facility] Advance Directives: All historical and current Section Date Range: From patient's date of to the date document was created. This section includes ALL of a patient's completed or amended [place] Advance and Rescinded Directives. The entries below indicate that a directive exists for the patient, but an actual copy is not included with this document. The data comes from all [place] facilities. Date Advance Directives Provider Source Feb 10, 2024 ADVANCE DIRECTIVE GRADY HERNANDEZ [facility] Encounter Notes: All associated encounter notes This section contains the clinical notes associated to the Encounter. Date/Time Encounter Note(s) Provider Source Mar 04, 2025 02:23 PM ORTHOPEDIC SURGERY CONSULT: LOCAL TITLE: ORTHOPEDIC CONSULT [facility] STANDARD TITLE: ORTHOPEDIC SURGERY CONSULT DATE OF NOTE: MAR 04, 2025@14:23 ENTRY DATE: MAR 04, 2025@14:23:40 AUTHOR: ANKUSH DAIGLE COSIGNER: THA PHELAN URGENCY: STATUS: COMPLETED HISTORY: Patient is a 79 year-old man who presents with his daughter with a chief complaint of bilateral hip pain, right worse than left. He originally injured the hip in the early when he fell out of bed. He has had hip pain for over 20 years. He has been unable to get a hip replacement due to his weight but has recently lost weight and his currenty BMI is 37.46. He has been at a f[facility] facility for the past year and has been working hard to regain strength and mobility. He reports he can walk 200 feet with a walker. He is a non-smoker, non-diabetic. He does have teeth but does not have a dentist. Vital Signs: Temperature: 98.2 F [36.8 C] (03/04/2025 13:43) Blood Pressure: 123/83 (03/04/2025 13:43) Pulse: 86 (03/04/2025 13:43) Respirations: 20 (03/04/2025 13:43) BMI: 37.5 Labs: No CBC EO data found Comprehensive Metabolic Panel Results: SODIUM 139 mEq/L 03/22/2023 09:55 POTASSIUM 4.2 mEq/L 03/22/2023 09:55 CHLORIDE 105 mEq/L 03/22/2023 09:55 UREA NITROGEN 14 mg/dL 03/22/2023 09:55 CREATININE 1.12 mg/dL 03/22/2023 09:55 CALCIUM 9.8 mg/dL 03/22/2023 09:55 CARBON DIOXIDE 24 mEq/L 03/22/2023 09:55 GLUCOSE 98 mg/dL 03/22/2023 09:55 EGFR (CKD-EPI 2020) 68.1 03/22/2023 09:55 HBA1c: HGA1C 5.5 % 03/22/2023 09:55 C-React Protein:0 No SED RAT (STL-PB) data found Past Medical History 1) HTN - Hypertension (SCT 91233448) 2) Morbid obesity 3) 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 Neurologic: Patient is oriented to person, place, and time. Hip: Exam of the bilateral hip reveals no erythema, lesions, or masses. There is no swelling about the hip. No joint tenderness. There is not tenderness over the greater trochanter. Log roll does elicit pain. Internal/external rotation does elicit pain. Range of motion about the hip is very limited. Distally neurovascularly intact with normal sensation, pulses, color, and capillary refill. RADIOGRAPHS: Radiographs were reviewed with the patient in the office today. Date Procedure CPT Status Case # 01/28/2025 HIPS, BILAT, MIN OF 5 VIEWS, W [id number] Verified 521 OR W/O PELVIS Advanced osteoarthritic change at the hip bilaterally left more than the right. No previous study is available for comparison. Addendum: Kellgren and Jean-Pierre classification grade 4 osteoarthritis. IMPRESSION: Bilateral hip osteoarthritis, severe PLAN: The anatomic basis and natural history of the problem were discussed with the patient. We discussed total hip arthroplasty at length. The patient conveyed an understanding of the condition. He and his daughter's questions were answered. The following recommendations were made: - continue physical therapy, home exercise program - dental consult for preoperative dental clearance - f/u reconstruction clinic to further discuss total hip arthroplasty On the date of the encounter, I spent 45 minutes on some or all of the following: chart review, history, physical examination, treatment planning, education and counseling of the patient/family/home health care provider, placing orders, communicating with other health care providers, and documentation in the electronic health record. /deepak/ ANKUSH DAIGLE PA-C Physician Geosciences Associate Professor, Orthopedic Signed: 03/04/2025 16:16 /deepak/ THA PHELAN MD Staff Physician, Orthopedics Cosigned: 03/05/2025 11:47 ANKUSH DAIGLE [facility]
--- OUTSIDE RECORDS SUMMARY | 2025-03-28 06:00 | XMS_ITS | Encounter Summary ---
Author Name [facility] [place] Address [address] [place] [address] Care Team Providers Care Morning Show Producer Name Role Phone MAKI CHRIS Primary Care [...] section includes the information on record at [place] for the Encounter. Date/Time Encounter Type Encounter Description Reason Provider Source Mar 28, 2025 11:00 AM OFFICE O/P EST LOW 20 MIN ORTHO/JOINT SURG ICD-10-CM M16.0 Bilateral primary osteoarthritis of hip MILAD FOOTE Josselyn Encounter Template Text not used by [place] Assessments - Encounter Diagnoses This section includes the primary and secondary diagnoses documented for the Encounter. Date/Time Primary/Secondary Diagnosis Diagnosis Name Provider Source Mar 28, 2025 11:16 AM PRIMARY Bilateral primary osteoarthritis of hip MILAD FOOTE [facility] Plan of Treatment: Future Appointments (+ 6 months) and Future Tests (+/- 45 days) The Plan of Treatment section includes future care activities for the patient from all [place] [facility] This section includes future appointments and future orders which are active, pending or scheduled. Future Appointments This section includes appointments that were scheduled to occur 6 months from the date of the Encounter, up to a maximum of 20 appointments. The data comes from all [place] [facility] Appointment Date/Time Appointment Type Appointme nt Facility Name May 08, 2025 09:00 AM AMBULATORY - NONE [facility] May 24, 2025 08:30 AM AMBULATORY - NONE [facility] May 30, 2025 09:00 AM AMBULATORY - MEDICINE [facility] Active, Pending, and Scheduled Orders This section includes a listing of several types of active, pending, and scheduled orders, including clinic medications orders, diagnostic test orders, procedure orders and consult orders; where the start date of the order is 45 days before the date of the Encounter or 45 days after the date of theEncounter. The data comes from all [facility]. Test Date/Time Test Type Test Details Facility Name Mar 04, 2025 02:42 PM Consult Order DENTAL ORT HOPEDI SURGERY OUTPT [facility] Lab Results: +/- 30 days of the encounter This section includes the Chemistry and Hematology Lab Results on record with [place] for the patient. Radiology Reports and Pathology Reports are provided separately, in subsequent sections. Lab Results This section contains the Chemistry/Hematology Results that were resulted 30 days before or 30 daysafter the date of the Encounter. Date/Time Source Result Type Result - Unit Interpretation Reference Range Specimen Type Comment Mar 04, 2025 03:12 PM [facility] VITAMIN D, 25-HYDROXY SERUM Specimen Type: SERUM No comment entered. Ordering Provider: MAKI CHRIS Report Released Date/Time: Feb 27, 2025 09:40 AM Reporting Lab: [address] [address] Performing Lab: [address] [address] VITAMIN D, 25-HYDROXY 70.9 ng/mL 30-96 Mar 04, 2025 03:12 PM [facility] LIPID PANEL (STL) PLASMA Specimen Type: PLASM A No comment entered. Ordering Provider: MAKI CHRIS Report Released Date/Time: Feb 27, 2025 09:40 AM Reporting Lab: [facility] [address] [facility] [place] [address] Performing Lab: [address] [address] CHOLESTEROL 129 mg/dL 0-200 TRIGLYCERIDE 113 mg/dL 0-150 CALCULATED LDL 70 mg/dL HDL(New) 36 mg/dL L >40 Mar 04, 2025 03:12 PM [facility] HGA1C BLOOD Specimen Type: BLOOD No comment entered. Ordering Provider: MAKI CHRIS Report Released Date/Time: Feb 27, 2025 09:40 AM Reporting Lab: [place] [address] [facility] [address] Performing Lab: [address] [address] HGA1C 5.6 4.0-6.0 Advance Directives: All historical and current Section Date Range: From patient's date of to the date document was created. This section includes ALL of a patient's completed or amended [place] Advance and Rescinded Directives. The entries below indicate that a directive exists for the patient, but an actual copy is not included with this document. The data comes from all [place] facilities. Date Advance Directives Provider Source Feb 10, 2024 ADVANCE DIRECTIVE GRADY HERNANDEZ [facility] Encounter Notes: All associated encounter notes This section contains the clinical notes associated to the Encounter. Date/Time Encounter Note(s) Provider Source Mar 28, 2025 10:49 AM ORTHOPEDIC SURGERY NOTE: LOCAL TITLE: ORTHOPEDIC STL STANDARD TITLE: ORTHOPEDIC SURGERY NOTE DATE OF NOTE: MAR 28, 2025@10:49 ENTRY DATE: MAR 28, 2025@10:49:15 AUTHOR: MILAD FOOTE COSIGNER: URGENCY: STATUS: COMPLETED HISTORY: JAYLAN OLIVEIRA, is a 79 year old MALE who presents to the Orthopedic Surgery clinic with 20 year history of bilateral hip pain. For the past year he has been in a rehab facility due to decreased functional ability. He had recent Xrays that demonstrated bilateral arthritis and is here to discuss surgery. He has a dental appointment in April 2025. Has a history of HTN and nephrectomy. BMI < 40. He mostly uses wheelchair but ambulates daily with PT at his rehab facility. Reports right hip worse than left hip REVIEW OF SYSTEMS: General: (-)fever/chills, (-)unexplained weight loss, (-) weight gain HEENT: (-) ear pain, (-)sore throat, (-)rhinorrhea, (-)cough Chest: (-) CP, (-) SOB Abdomen:(-) abdominal pain, (-)nausea/vomiting, (-) constipation, (-)diarrhea Musc: (-)edema Skin: (-)rash Psych: (-) dysphoria, (-) anxiety, (-) sleep disturbance Neuro: (-) headache, (-) dizziness/lightheadedness, (-) numbness, (-) weakness : (-) dysuria, (-) discharge,(-) nocturia, (-)frequency, (-) gross hematuria Endo: (-) polyuria, (-)polydipsia CAD: KIDNEY DISEASE DM: CANCER: BLOOD CLOT HISTORY: personal family DENTIST: Surgical History: Past Medical History 1) HTN - Hypertension (SCT [id number]) 2) Morbid obesity 3) 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 Medications Active Outpatient Medications (including Supplies): Active Outpatient Medications Status = 1) SEMAGLUTIDE WL 0.5MG/0.5ML PEN 0.5ML INJECT 0.5MG UNDER THE ACTIVE SKIN EVERY WEEK START AFTER COMPLETION OF 0.25MG DOSE IF TOLERATING, CONTACT PROVIDER FOR DOSE ADJUSTMENT NEEDED Indication: FOR WEIGHT LOSS 2) TRIAMCINOLONE ACETONIDE 0.1% OINT APPLY SPARINGLY TO ACTIVE AFFECTED AREA(S) EVERY MORNING (EXTERNAL USE ONLY) Indication: FOR ATOPIC DERMATITIS Allergies PENICILLIN Vital Signs: Temp: 97.9 F [36.6 C] (03/28/2025 10:46) Pulse: 88 (03/28/2025 10:46) BP: 144/86 (03/28/2025 10:46) RESP: 20 (03/28/2025 10:46) Pain: 2 (03/28/2025 10:46) Height: 72 in [182.9 cm] (03/28/2025 10:46) Weight: 275 lb [124.74 kg] (03/28/2025 10:46) BMI:37.4 CRE:No CREATININE EO data found HBA1C: HGA1C 5.6 % 03/04/2025 15:12 EXAMINATION: Constitutional: Patient alert and oriented x3, in wheelchair Musculoskeletal exam: BLE - Pain and crepitus with attempted flexion, extension, and internal/external rotation of bilateral hips - Hyperpigmentation of bilateral legs in stocking distribution, no open wounds - SILT SP/DP/T - +EHL/FHL/GS/TA - toes wwp RADIOGRAPHS: Radiographs were personally reviewed with the patient in the office today. Date Procedure CPT Status Case # 01/28/2025 HIPS, BILAT, MIN OF 5 VIEWS, W [id number] Verified 521 OR W/O PELVIS Advanced osteoarthritic change at the hip bilaterally left more than the right. No previous study is available for comparison. Addendum: Kellgren and Jean-Pierre classification grade 4 osteoarthritis. IMPRESSION/PLAN: 79yo M with bilaterl hip arthritis, right worse than left. Had an extensive discussion with patient and his daughter, Niki, regarding his etiology of his disease and the operative and nonoperative treatments. Patient has severe arthritis that has failed conservative management with physical therapy and over the counter medications and would benefit from total hip arthroplasty. We discussed the risks and benefits of surgery and reason for optimization in minimizing risks such as infection which can carry a high morbidity and mortality. We discussed other risks of surgery including stiffness, blood clots, instability, damage to surrounding structures such as vessels and nerves, repeat procedures, and risks of anesthesia. Patient would like to proceed with surgery. He has a dental appointment in April and we recommended follow up after all dental procedures are completed. We recommended continued therapy as preoperative function would best predict postoperative function. Patient and his daughter understand and agree with the plan. All questions answered. - f/u PRN after dental clearance -Patient verbalized understanding and agreed with the plan of care outlined above. Time spent: 25 minutes for chart review, interview, physical examination, inspection of images, mental health orderly, counseling/teaching, and documentation /es/ MILAD FOOTE ORTHOPEDIC SURGERY FELLOW Signed: 03/28/2025 11:16 MILAD FOOTE [facility]
[2025-04-12] VITALS (23 sets, daily range): BP systolic 100–156; BP diastolic 52–138; PULSE 69–119; RESP 12–33; TEMP 35.7–36.5; O2SAT 90–100; BMI 36.4
--- NOTE | ~2025-04-12 | XR_ITS ---
EXAMINATION: XR chest 1V portable, 04/12/2025 14:00 CDT HISTORY: Vomiting COMPARISON: No comparisons available. Technique: Single view. Findings: The lungs are clear, no effusion. No pneumothorax. Heart is normal size. Mediastinal and hilar contours are within normal limits. Bony thorax no acute abnormality. Impression: No acute cardiopulmonary abnormality. Reviewed, dictated and finalized at location A. Impression: No acute cardiopulmonary abnormality.
--- OUTSIDE RECORDS SUMMARY | 2025-04-12 07:37 | XMS_ITS | Continuity of Care Document ---
Author Name [facility] Organization [facility] Care Team Providers Care [employer] Name Role Phone [facility] Unavailable Unavailable Problems Combined list of problems from [facility] and [facility] facilities. It does not include entries that were removed or entered in error. Problem Status Onset Date Problem Type Date of Resolution Comments Source HTN - Hypertension ([facility] [id number]) Active Condition [facility] Morbid obesity Active Condition [facility] Personal history of primary malignant neoplasm of kidney Active Condition Apr 05, 2023 Entered By: JOAQUÍN OROZCO Comment: right radical nephrectomy [facility] Diagnosis: ICD-10-CM M16.0 Bilateral primary osteoarthritis of hip Active Diagnosis [facility] Diagnosis: ICD-10-CM E66.812 Obesity, class 2 Active Diagnosis [facility] Diagnosis: ICD-10-CM E66.01 Morbid (severe) obesity due to excess calories Active Diagnosis [facility] Diagnosis: ICD-10-CM M17.0 Bilateral primary osteoarthritis of knee Active Diagnosis [facility] Diagnosis: ICD-10-CM Z74.09 Other reduced mobility Active Diagnosis [facility] Diagnosis: ICD-10-CM I89.0 Lymphedema, not elsewhere classified Active Diagnosis [facility] Diagnosis: ICD-10-CM I10 Essential (primary) hypertension Active Diagnosis [facility] Medications Combined list of outpatient medications from [facility] facilities.Medications provided include 1) outpatient medications from the last 15 months, and 2) patient-reported medications. Medication Details Route Status Patient Instructions Prescription Expires Prescription Number Last Dispense Date Ordering Provider Order Date Order Qty Source SEMAGLUTIDE (WT LOSS) 0.25MG/0.5M L INJ,SOLN,PE N,0.5ML INJECT 0.25MG UNDER THE SKIN EVERY WEEK FOR WEIGHT LOSS (INITIAL DOSE) SUBCUT ANEOUS 03/01/2025 [id number] [place] ANTONIO 2024 4 [facility] SEMAGLUTIDE (WT LOSS) 0.5MG/0.5ML INJ,SOLN,PE N,0.5ML INJECT 0.5MG UNDER THE SKIN EVERY WEEK FOR WEIGHT LOSS START AFTER COMPLETI ON OF 0.25MG DOSE IF TOLERATI NG, CONTACT PROVIDER FOR DOSE ADJUSTME NT NEEDED SUBCUT ANEOUS ACTIVE 01/31/2026 [id number] 5 [place] ANTONIO 2024 4 [facility] TRIAMCINOLO NE ACETONIDE 0.1% OINT,TOP APPLY SPARINGL Y TO AFFECTED AREA(S) EVERY MORNING FOR ATOPIC DERMATIT IS (EXTERNA L USE ONLY) TOPICA L ACTIVE 08/03/2025 [id number] COUPER,ST EVEN G 2023 454 [facility] Allergies, Adverse Reactions, Alerts Combined list of allergies from [facility] of Defense and [facility] Affairs facilities. It does not include entries that were removed or entered in error. Substance Category Reaction Severity Reaction type Status Date Reported Comments Source PENICILLIN Propensity to adverse reactions to drug (finding) Syncope active 3 [facility] Immunizations Combined list of available immunizations from the Department of Defense and Veterans Affairs facilities. Immunization Series Date Given Administered By Site Reaction Lot Number CVX Code Drug Economic Development Coordinator Status Comments Source ZOSTER RECOMBINANT 1 2023 HERMINIO AGRAWAL LEFT DELTO ID [id number] 187 complet ed [facility] COVID-19 (PFIZER), MRNA, LNP-S, PF, ALISIA-SUCROSE, 30 MCG/0.3 ML (AGES 12+ YEARS) 2022 SHASHI WYMAN LEFT DELTO ID [id number] 309 complet ed Completed Series, [facility] INFLUENZA, HIGH-DOSE, QUADRIVALENT 2022 SHASHI WYMAN RIGHT DELTO ID [id number] A 197 complet ed Completed Series, [facility] PNEUMOCOCCAL CONJUGATE PCV20, POLYSACCHARID E [id number] CONJUGATE, ADJUVANT, PF 1 2022 HERMINIO AGRAWAL LEFT DELTO ID [id number] 216 complet ed [facility] COVID-19 (PFIZER), MRNA, LNP-S, PF, 30 MCG/0.3 ML DOSE 2 2020 208 complet ed HISTORICA L INFORMATI ON - FROM PATIENT'S WRITTEN RECORD, [facility] COVID-19 (PFIZER), MRNA, LNP-S, PF, 30 MCG/0.3 ML DOSE 1 2020 208 complet ed HISTORICA L INFORMATI ON - FROM OTHER REGISTRY, [facility] COVID-19 ([facility]), MRNA, LNP-S, PF, 30 MCG/0.3 ML DOSE 1 2020 208 complet ed HISTORICA L INFORMATI ON - FROM PATIENT'S WRITTEN RECORD, [facility] INFLUENZA, HIGH DOSE SEASONAL 2 2018 135 complet ed HISTORICA L INFORMATI ON - FROM OTHER REGISTRY, [facility] TD[facility] 1 2018 115 complet ed HISTORICA L INFORMATI ON - FROM OTHER REGISTRY, [facility] INFLUENZA, HIGH DOSE SEASONAL 1 2016 135 complet ed HISTORICA L INFORMATI ON - FROM OTHER REGISTRY, [facility] Results Combined list of recent chemistry, hematology and other laboratory results from Department of Defense and Veterans Affairs, ranging from 15 months to all on record, depending upon the facility. Order Name Results Value Reference Range Date Interpretation Specimen Comments Source VITAMIN D, 25-HYDROX Y 25-HYDROXYVITA MIN D3 [MASS/VOLUME] IN SERUM OR PLASMA 70.9 ng/mL 30 - 96 03/04 Specimen Type: SERUM No comment entered. Ordering Provider: DAVIS Report Released Date/Time : Feb 27, 2025 09:40 AM Reporting Lab: [id number] [address] Performin g Lab: [address] [address] [facility] LIPID PANEL (STL) CHOLESTEROL [MASS/VOLUME] IN SERUM OR PLASMA 129 mg/dL 0 - 200 03/04 Specimen Type: PLASMA No comment entered. Ordering Provider: DAVIS Report Released Date/Time : Feb 27, 2025 09:40 AM Reporting Lab: [address] [address] Performin g Lab: [address] [address] [facility] LIPID PANEL (STL) TRIGLYCERIDE [MASS/VOLUME] IN SERUM OR PLASMA 113 mg/dL 0 - 150 03/04 Specimen Type: PLASMA No comment entered. Ordering Provider: DAVIS Report Released Date/Time : Feb 27, 2025 09:40 AM Reporting Lab: [address] [address] Performin g Lab: [address] [address] [facility] LIPID PANEL (STL) CHOLESTEROL IN LDL [MASS/VOLUME] IN SERUM OR PLASMA BY CALCULATION 70 mg/dL 03/04 Specimen Type: PLASMA No comment entered. Ordering Provider: DAVIS Report Released Date/Time : Feb 27, 2025 09:40 AM Reporting Lab: [address] [address] Performin g Lab: [address] [address] [facility] LIPID PANEL (STL) CHOLESTEROL IN HDL [MASS/VOLUME] IN SERUM OR PLASMA 36 mg/dL 40 03/04 L Specimen Type: PLASMA No comment entered. Ordering Provider: DAVIS Report Released Date/Time : Feb 27, 2025 09:40 AM Reporting Lab: [place] [id number] [facility] [address] Performin g Lab: [facility] [address] [facility] [address] [facility] HGA1C HEMOGLOBIN A1C/HEMOGLOBIN .TOTAL IN BLOOD 5.6 4.0 - 6.0 03/04 Specimen Type: BLOOD No comment entered. Ordering Provider: DAVIS Report Released Date/Time : Feb 27, 2025 09:40 AM Reporting Lab: [facility] [address] [facility] [address] Performin g Lab: [address] [address] [facility] Vital Signs Combined list of inpatient and outpatient Vital Signs from Department of Defense and Veterans Affairs, ranging from 12 months to all on record, depending upon the facility. Vital Sign Value Date Comments Source SYSTOLIC BLOOD PRESSURE 144 03/28/2025 10:46:32 [facility] DIASTOLIC BLOOD PRESSURE 86 03/28/2025 10:46:32 [facility] PULSE OXIMETRY 95 % 03/28/2025 10:46:32 S [facility] WEIGHT 275 03/28/2025 10:46:32 [facility] BMI 37 kg/m2 03/28/2025 10:46:32 [facility] PAIN 2 03/28/2025 10:46:32 [facility] HEIGHT 72 03/28/2025 10:46:32 [facility] TEMPERATURE 97.9 03/28/2025 10:46:32 [facility] PULSE 88 03/28/2025 10:46:32 [facility] RESPIRATION 20 03/28/2025 10:46:32 [facility] SYSTOLIC BLOOD PRESSURE 123 03/04/2025 13:43:02 [facility] DIASTOLIC BLOOD PRESSURE 83 03/04/2025 13:43:02 [facility] PULSE OXIMETRY 96 % 03/04/2025 13:43:[address] [facility] PAIN 2 03/04/2025 13:43:02 [facility] Alonso [facility] TEMPERATURE 98.2 03/04/2025 13:43:02 [facility] PULSE 86 03/04/2025 13:43:[address] [facility] RESPIRATION 20 03/04/2025 13:43:02 [facility] SYSTOLIC BLOOD PRESSURE 137 01/28/2025 09:04:02 [facility] DIASTOLIC BLOOD PRESSURE 94 01/28/2025 09:04:02 [facility] PULSE OXIMETRY 96 01/28/2025 09:04:[address] [facility] WEIGHT 275.6 01/28/2025 09:04:02 [facility] Alonso [facility] BMI 37 kg/m2 01/28/2025 09:04:02 [facility] TEMPER[facility] 98 01/28/2025 09:04:02 [facility] PULSE 102 01/28/2025 09:04:02 [facility] RESPIRATION 20 01/28/2025 09:04:02 [facility] SYSTOLIC BLOOD PRESSURE 132 09/10/2024 11:27:17 [facility] DIASTOLIC BLOOD PRESSURE 84 09/10/2024 11:27:17 [facility] PULSE OXIMETRY 95 09/10/2024 11:27:[address] [facility] WEIGHT 285 09/10/2024 11:27:17 [facility] BMI 39 kg/m2 09/10/2024 11:27:17 [facility] PAIN 0 09/10/2024 11:27:17 [facility] TEMPERATURE 97.9 09/10/2024 11:27:17 [facility] PULSE 108 09/10/2024 11:27:17 [facility] RESPIRATION 20 09/10/2024 11:27:17 [facility] Encounters Combined list of: 1) Encounters from Department of [facility] Affairs facilities going backup to the last 18 months, not all VA inpatient encounters are included; 2) Encounters from the Department of [facility] facilities going backup to 280 months. Location Location Details Encounter Type Encounter Number Reason For Visit Attending Provider ADM Date DC Date Status Disposition Source [facility] OFFICE O/P EST MOD 30 MIN [id number] Diagnos is: ICD-10- CM I10 Essenti al (primar y) hyperte nsion GAYE,WING MONIE R 10/17 [facility] Outpatient Encounter [id number] 10/23 [facility] OFFICE O/P EST SF 10 MIN [id number] Diagnos is: ICD-10- CM I89.0 Lymphed lynne, not elsewhe re classif ied COUPER,ROBERTO MARIA LUZ G 11/27 [facility] THERAPEUTI C ACTIVITIES [id number] Diagnos is: ICD-10- CM I89.0 Lymphed lynne, not elsewhe re classif ied YOUSIF BRASWELL K 11/27 [facility] [place] [id number] Diagnos is: ICD-10- CM E66.01 Morbid (severe ) obesity due to excess calorie MARIXA Weiss 12/29 [facility] Outpatient Encounter [id number] 01/20 [facility] Outpatient Encounter [id number] 01/22 [facility] Outpatient Encounter [id number] Diagnos is: ICD-10- CM E66.01 Morbid (severe ) obesity due to excess calorie s ERNESTO,MET VANDANA 01/24 [facility] Outpatient Encounter [id number] 01/31 [facility] HC PRO PHONE CALL 11-20 MIN [id number] Diagnos is: ICD-10- CM Z74.09 Other reduced mobilit y Krysta KIM 02/01 [facility] Outpatient Encounter [id number] Diagnos is: ICD-10- CM M17.0 Bilater al primary osteoar thritis of knee ERNESTO,MET VANDANA 02/07 [facility] Outpatient Encounter [id number] 02/09 [facility] Outpatient Encounter [id number] 02/09 [facility] Outpatient Encounter [id number] 02/16 [facility] Outpatient Encounter [id number] 02/27 [facility] Outpatient Encounter [id number] 03/13 [facility] MED NUTRITION INDIV SUBSEQ [id number] Diagnos is: ICD-10- CM E66.01 Morbid (severe ) obesity due to excess calorie s MARIXA SOLO 03/21 [facility] Outpatient Encounter [id number] LORI [facility] 04/19 [facility] Outpatient Encounter [id number] 04/19 [facility] Outpatient Encounter [id number] 04/25 [facility] NUTRITION INDIV SUBSEQ [id number] Diagnos is: ICD-10- CM E66.01 Morbid (severe ) obesity due to excess calorie s MARIXA SOLO 04/26 [facility] NUTRITION INDIV SUBSEQ [id number] Diagnos is: ICD-10- CM E66.01 Morbid (severe ) obesity due to excess calorie s MARIXA SOLO 07/25 [facility] Outpatient Encounter [id number] 08/03 [facility] HC PRO PHONE CALL 11-20 MIN [id number] Diagnos is: ICD-10- CM E66.01 Morbid (severe ) obesity due to excess calorie s LEENA ANTONY 08/14 [facility] OFF/OP CNSLTJ NEW/EST MOD 40 [id number] Diagnos is: ICD-10- CM E66.01 Morbid (severe ) obesity due to excess calorie s CARLI ACOSTA 09/10 [facility] N [facility] Outpatient Encounter [id number] NIELS LÓPEZ M 09/10 [facility] N [facility] NQHP OL DIG ASSMT&MGMT 11-20 [id number] Diagnos is: ICD-10- CM E66.01 Morbid (severe ) obesity due to excess calorie s JADA MCGOWAN SHIRLEY 09/11 [facility] MED NUTRITION INDIV SUBSEQ [id number] Diagnos is: ICD-10- CM E66.812 Obesity , class 2 GERMANIAMARIXA C 10/31 [facility] Outpatient Encounter [id number] 12/04 [facility] OFFICE O/P EST MOD 30 MIN [id number] Diagnos is: ICD-10- CM E66.812 Obesity , class 2 Marques ANTONIO PAOLA 01/28 [facility] N [facility] SYNCH AUDIO-ONLY EST SF 10 [id number] Marques ANTONIOEPH PAOLA 01/29 [facility] NQHP OL DIG ASSMT&MGMT 5-10 [id number] Diagnos is: ICD-10- CM E66.01 Morbid (severe ) obesity due to excess calorie s RADHA DIETRICH 01/30 [facility] MED NUTRITION INDIV SUBSEQ [id number] Diagnos is: ICD-10- CM E66.812 Obesity , class 2 MARIXA SOLO 02/22 [facility] OFF/OP CNSLTJ NEW/EST MOD 40 [id number] Diagnos is: ICD-10- CM M16.0 Bilater al primary osteoar thritis of hip ME YESICA DAIGLE 03/04 [facility] Outpatient Encounter [id number] 03/05 [facility] OFFICE O/P EST LOW 20 MIN [id number] Diagnos is: ICD-10- CM M16.0 Bilater al primary osteoar thritis of hip MILAD FOOTE 03/28 [facility] Social History Combined list of available smoking, tobacco, and other social history from Department of Defense and Veterans Affairs facilities. Social History Type Response Date Comment Sour e Tobacco smoking status NHIS VA-TOBACCO FORMER USER 03/22/2023 [facility] History of tobacco use MI-TOBACCO QUIT 1 5 YRS OR MORE 03/22/2023 [facility] Plan of Care List of future care activities from Department [facility] facilities. Additional future care activities may be listed in the Assessment and Plan section. Date/Time Care Activity Care Activity Detail Facili ty 05/08/2025 AMBULATORY - NONE AMBULATORY - NONE [facility] Advance Directives List of completed, amended, or rescinded Advance Directives on record at [facility] facilities. An actual copy of the Directive is not included. Date Advance Directive Provider Source 02/10/2024 ADVANCE DIRECTIVE GRADY HERNANDEZ [facility]
--- OUTSIDE RECORDS SUMMARY | 2025-04-12 07:37 | XMS_ITS | Continuity of Care Document ---
Author Name [facility] Organization [facility] Care Team Providers Care Coiled Tubing Operator Name Role Phone [facility] Unavailable Unavailable Problems Combined list of problems from [facility] facilities. It does not include entries that were removed or entered in error. Problem Status Onset Date Problem Type Date of Resolution Comments Source HTN - Hypertension ([facility] [id number]) Active Condition [facility] Morbid obesity Active Condition [facility] Personal history of primary malignant neoplasm of kidney Active Condition Apr 05, 2023 Entered By: JOAQUÍN OROZCO Comment: right radical nephrectomy [facility] Diagnosis: ICD-10-CM M16.0 Bilateral primary osteoarthritis of hip Active Diagnosis [facility] Diagnosis: ICD-10-CM E66.812 Obesity, class 2 Active Diagnosis [facility] Diagnosis: ICD-10-CM E66.01 Morbid (severe) obesity due to excess calories Active Diagnosis [facility] Diagnosis: ICD-10-CM M17.0 Bilateral primary osteoarthritis of knee Active Diagnosis [facility] Diagnosis: ICD-10-CM Z74.09 Other reduced mobility Active Diagnosis [facility] Diagnosis: ICD-10-CM I89.0 Lymphedema, not elsewhere classified Active Diagnosis [facility] Diagnosis: ICD-10-CM I10 Essential (primary) hypertension Active Diagnosis [facility] Medications Combined list of outpatient medications from [facility] facilities.Medications provided include 1) outpatient medications from the last 15 months, and 2) patient-reported medications. Medication Details Route Status Patient Instructions Prescription Expires Prescription Number Last Dispense Date Ordering Provider Order Date Order Qty Source SEMAGLUTIDE (WT LOSS) 0.25MG/0.5M L INJ,SOLN,PE N,0.5ML INJECT 0.25MG UNDER THE SKIN EVERY WEEK FOR WEIGHT LOSS (INITIAL DOSE) SUBCUT ANEOUS 03/01/2025 [id number] [place] ANTONIO 2024 4 [facility] SEMAGLUTIDE (WT LOSS) 0.5MG/0.5ML INJ,SOLN,PE N,0.5ML INJECT 0.5MG UNDER THE SKIN EVERY WEEK FOR WEIGHT LOSS START AFTER COMPLETI ON OF 0.25MG DOSE IF TOLERATI NG, CONTACT PROVIDER FOR DOSE ADJUSTME NT NEEDED SUBCUT ANEOUS ACTIVE 01/31/2026 [id number] 5 [place] ANTONIO 2024 4 [facility] TRIAMCINOLO NE ACETONIDE 0.1% OINT,TOP APPLY SPARINGL Y TO AFFECTED AREA(S) EVERY MORNING FOR ATOPIC DERMATIT IS (EXTERNA L USE ONLY) TOPICA L ACTIVE 08/03/2025 [id number] COUPER,ST EVEN G 2023 454 [facility] Allergies, Adverse Reactions, Alerts Combined list of allergies from [facility] of Defense and Veterans Affairs facilities. It does not include entries that were removed or entered in error. Substance Category Reaction Severity Reaction type Status Date Reported Comments Source PENICILLIN Propensity to adverse reactions to drug (finding) Syncope active 3 [facility] Immunizations Combined list of available immunizations from the Department of Defense and Veterans Affairs facilities. Immunization Series Date Given Administered By Site Reaction Lot Number CVX Code Drug Breakdown Mill Operator Status Comments Source ZOSTER RECOMBINANT 1 2023 HERMINIO AGRAWAL LEFT DELTO ID [id number] 187 complet ed [facility] AT [facility] COVID-19 (PFIZER), MRNA, LNP-S, PF, ALISIA-SUCROSE, 30 MCG/0.3 ML (AGES 12+ YEARS) 2022 SHASHI WYMAN LEFT DELTO ID [id number] 309 complet ed Completed Series, AD[facility] AT [facility] INFLUENZA, HIGH-DOSE, QUADRIVALENT 2022 SHASHI WYMAN RIGHT DELTO ID [id number] A 197 complet ed Completed Series, ADMINISTE [place] AT [place], [facility] PNEUMOCOCCAL CONJUGATE PCV20, POLYSACCHARID E [id number] CONJUGATE, ADJUVANT, PF 1 2022 HERMINIO AGRAWAL LEFT DELTO ID [id number] 216 complet ed [facility] AT [facility] COVID-19 (PFIZER), MRNA, LNP-S, PF, 30 MCG/0.3 ML DOSE 2 2020 208 complet ed HISTORICA L INFORMATI ON - FROM PATIENT'S WRITTEN RECORD, [facility] COVID-19 (PFIZER), MRNA, LNP-S, PF, 30 MCG/0.3 ML DOSE 1 2020 208 complet ed HISTORICA L INFORMATI ON - FROM OTHER REGISTRY, [facility] COVID-19 ([facility]), MRNA, LNP-S, PF, 30 MCG/0.3 ML DOSE 1 2020 208 complet ed HISTORICA L INFORMATI ON - FROM PATIENT'S WRITTEN RECORD, [facility] INFLUENZA, HIGH DOSE SEASONAL 2 2018 135 complet ed HISTORICA L INFORMATI ON - FROM OTHER REGISTRY, [facility] 2018 115 complet ed HISTORICA L INFORMATI ON - FROM OTHER REGISTRY, [facility] INFLUENZA, HIGH DOSE SEASONAL 1 2016 135 complet ed HISTORICA L INFORMATI ON - FROM OTHER REGISTRY, [facility] Results Combined list of recent chemistry, hematology and other laboratory results from Department of Defense and Veterans Affairs, ranging from 15 months to all on record, depending upon the facility. Order Name Results Value Reference Range Date Interpretation Specimen Comments Source HGA1C HEMOGLOBIN A1C/HEMOGLOBIN .TOTAL IN BLOOD 5.6 4.0 - 6.0 03/04 Specimen Type: BLOOD No comment entered. Ordering Provider: DAVIS Report Released Date/Time : Feb 27, 2025 09:40 AM Reporting Lab: [facility] [address] [facility] [address] Performin g Lab: [address] [address] [facility] LIPID PANEL (STL) CHOLESTEROL [MASS/VOLUME] IN SERUM OR PLASMA 129 mg/dL 0 - 200 03/04 Specimen Type: PLASMA No comment entered. Ordering Provider: DAVIS Report Released Date/Time : Feb 27, 2025 09:40 AM Reporting Lab: [address] [address] Performin g Lab: [address] [address] [facility] LIPID PANEL (STL) TRIGLYCERIDE [MASS/VOLUME] IN SERUM OR PLASMA 113 mg/dL 0 - 150 03/04 Specimen Type: PLASMA No comment entered. Ordering Provider: DAVIS Report Released Date/Time : Feb 27, 2025 09:40 AM Reporting Lab: [address] [address] Performin g Lab: [address] [address] [facility] LIPID PANEL (STL) CHOLESTEROL IN LDL [MASS/VOLUME] IN SERUM OR PLASMA BY CALCULATION 70 mg/dL 03/04 Specimen Type: PLASMA No comment entered. Ordering Provider: DAVIS Report Released Date/Time : Feb 27, 2025 09:40 AM Reporting Lab: [address] [address] Performin g Lab: [address] [address] [facility] LIPID PANEL (STL) CHOLESTEROL IN HDL [MASS/VOLUME] IN SERUM OR PLASMA 36 mg/dL 40 03/04 L Specimen Type: PLASMA No comment entered. Ordering Provider: DAVIS Report Released Date/Time : Feb 27, 2025 09:40 AM Reporting Lab: [address] [address] Performin g Lab: [facility] [address] [facility] [address] [facility] VITAMIN D, 25-HYDROX Y 25-HYDROXYVITA MIN D3 [MASS/VOLUME] IN SERUM OR PLASMA 70.9 ng/mL 30 - 96 03/04 Specimen Type: SERUM No comment entered. Ordering Provider: DAVIS Report Released Date/Time : Feb 27, 2025 09:40 AM Reporting Lab: [facility] [address] [facility] [address] Performin g Lab: [place] [address] [facility] [address] [facility] Vital Signs Combined list of inpatient and outpatient Vital Signs from Department of Defense and Veterans Affairs, ranging from 12 months to all on record, depending upon the facility. Vital Sign Value Date Comments Source SYSTOLIC BLOOD PRESSURE 144 03/28/2025 10:46:32 [facility] DIASTOLIC BLOOD PRESSURE 86 03/28/2025 10:46:32 [facility] PULSE OXIMETRY 95 % 03/28/2025 10:46:32 [facility] WEIGHT 275 03/28/2025 10:46:32 [facility] BMI 37 kg/m2 03/28/2025 10:46:32 [facility] PAIN 2 03/28/2025 10:46:32 [facility] HEIGHT 72 03/28/2025 10:46:32 [facility] TEMPERATURE 97.9 03/28/2025 10:46:32 [facility] PULSE 88 03/28/2025 10:46:32 [facility] RESPIRATION 20 03/28/2025 10:46:32 [facility] SYSTOLIC BLOOD PRESSURE 123 03/04/2025 13:43:02 [facility] DIASTOLIC BLOOD PRESSURE 83 03/04/2025 13:43:02 [facility] PULSE OXIMETRY 96 % 03/04/2025 13:43:02 [facility] PAIN 2 03/04/2025 13:43:02 [facility] Alonso [facility] TEMPERATURE 98.2 03/04/2025 13:43:02 [facility] PULSE 86 03/04/2025 13:43:02 Alonso [facility] RESPIRATION 20 03/04/2025 13:43:02 [facility] SYSTOLIC BLOOD PRESSURE 137 01/28/2025 09:04:02 [facility] DIASTOLIC BLOOD PRESSURE 94 01/28/2025 09:04:02 [facility] PULSE OXIMETRY 96 01/28/2025 09:04:02 Mirta [facility] WEIGHT 275.6 01/28/2025 09:04:02 [facility] Alonso [facility] BMI 37 kg/m2 01/28/2025 09:04:02 [facility] TEMPERATURE 98 01/28/2025 09:04:02 [facility] PULSE 102 01/28/2025 09:04:02 [facility] RESPIRATION 20 01/28/2025 09:04:02 [facility] SYSTOLIC BLOOD PRESSURE 132 09/10/2024 11:27:17 [facility] DIASTOLIC BLOOD PRESSURE 84 09/10/2024 11:27:17 [facility] PULSE OXIMETRY 95 09/10/2024 11:27:17 Mirta [facility] WEIGHT 285 09/10/2024 11:27:17 [facility] BMI 39 kg/m2 09/10/2024 11:27:17 [facility] PAIN 0 09/10/2024 11:27:17 [facility] TEMPERATURE 97.9 09/10/2024 11:27:17 [facility] PULSE 108 09/10/2024 11:27:17 [facility] RESPIRATION 20 09/10/2024 11:27:17 [facility] Encounters Combined list of: 1) Encounters from Department of [facility] Affairs facilities going backup to the last 18 months, not all VA inpatient encounters are included; 2) Encounters from the Department of [facility] facilities going backup to 280 months. Location Location Details Encounter Type Encounter Number Reason For Visit Attending Provider ADM Date DC Date Status Disposition Source [facility] OFFICE O/P EST MOD 30 MIN [id number] Diagnos is: ICD-10- CM I10 Essenti al (primar y) hyperte nsion GAYE,WING MONIE R 10/17 [facility] Outpatient Encounter [id number] 10/23 [facility] OFFICE O/P EST SF 10 MIN [id number] Diagnos is: ICD-10- CM I89.0 Lymphed lynne, not elsewhe re classif ied COUPER,ROBERTO MARIA LUZ G 11/27 [facility] THERAPEUTI C ACTIVITIES [id number] Diagnos is: ICD-10- CM I89.0 Lymphed lynne, not elsewhe re classif ied YOUSIF BRASWELL K 11/27 [facility] [place] [id number] Diagnos is: ICD-10- CM E66.01 Morbid (severe ) obesity due to excess calorie MARIXA Weiss 12/29 [facility] Outpatient Encounter [id number] 01/20 [facility] Outpatient Encounter [id number] 01/22 [facility] Outpatient Encounter [id number] Diagnos is: ICD-10- CM E66.01 Morbid (severe ) obesity due to excess calorie s ERNESTO,MET VANDANA 01/24 [facility] Outpatient Encounter [id number] 01/31 [facility] HC PRO PHONE CALL 11-20 MIN [id number] Diagnos is: ICD-10- CM Z74.09 Other reduced mobilit y Krysta KIM 02/01 [facility] Outpatient Encounter [id number] Diagnos is: ICD-10- CM M17.0 Bilater al primary osteoar thritis of knee ERNESTO,MET VANDANA 02/07 [facility] Outpatient Encounter [id number] 02/09 [facility] Outpatient Encounter [id number] 02/09 [facility] Outpatient Encounter [id number] 02/16 [facility] Outpatient Encounter [id number] 02/27 [facility] Outpatient Encounter [id number] 03/13 [facility] MED NUTRITION INDIV SUBSEQ [id number] Diagnos is: ICD-10- CM E66.01 Morbid (severe ) obesity due to excess calorie s MARIXA SOLO 03/21 [facility] Outpatient Encounter [id number] LORI WESTBROOK 04/19 [facility] Outpatient Encounter [id number] 04/19 [facility] Outpatient Encounter [id number] 04/25 [facility] NUTRITION INDIV SUBSEQ [id number] Diagnos is: ICD-10- CM E66.01 Morbid (severe ) obesity due to excess calorie s MARIXA SOLO 04/26 [facility] NUTRITION INDIV SUBSEQ [id number] Diagnos is: ICD-10- CM E66.01 Morbid (severe ) obesity due to excess calorie s MARIXA SOLO 07/25 [facility] Outpatient Encounter [id number] 08/03 [facility] HC PRO PHONE CALL 11-20 MIN [id number] Diagnos is: ICD-10- CM E66.01 Morbid (severe ) obesity due to excess calorie s LEENA ANTONY 08/14 [facility] OFF/OP CNSLTJ NEW/EST MOD 40 [id number] Diagnos is: ICD-10- CM E66.01 Morbid (severe ) obesity due to excess calorie s CARLI ACOSTA 09/10 [facility] N [facility] Outpatient Encounter [id number] NIELS LÓPEZ M 09/10 [facility] N [facility] NQHP OL DIG ASSMT&MGMT 11-20 [id number] Diagnos is: ICD-10- CM E66.01 Morbid (severe ) obesity due to excess calorie s JADA MCGOWAN SHIRLEY 09/11 [facility] MED NUTRITION INDIV SUBSEQ [id number] Diagnos is: ICD-10- CM E66.812 Obesity , class 2 GERMANIAMARIXA C 10/31 [facility] Outpatient Encounter [id number] 12/04 [facility] OFFICE O/P EST MOD 30 MIN [id number] Diagnos is: ICD-10- CM E66.812 Obesity , class 2 Marques ANTONIO PAOLA 01/28 [facility] SYNCH AUDIO-ONLY EST SF 10 [id number] Marques ANTONIOEPH PAOLA 01/29 [facility] NQHP OL DIG ASSMT&MGMT 5-10 [id number] Diagnos is: ICD-10- CM E66.01 Morbid (severe ) obesity due to excess calorie s RADHA DIETRICH 01/30 [facility] MED NUTRITION INDIV SUBSEQ [id number] Diagnos is: ICD-10- CM E66.812 Obesity , class 2 MARIXA SOLO 02/22 [facility] OFF/OP CNSLTJ NEW/EST MOD 40 [id number] Diagnos is: ICD-10- CM M16.0 Bilater al primary osteoar thritis of hip ME YESICA DAIGLE 03/04 [facility] Outpatient Encounter [id number] 03/05 [facility] OFFICE O/P EST LOW 20 MIN [id number] Diagnos is: ICD-10- CM M16.0 Bilater al primary osteoar thritis of hip MILAD FOOTE 03/28 [facility] Social History Combined list of available smoking, tobacco, and other social history from Department of Defense and Veterans Affairs facilities. Social History Type Response Date Comment Sour e Tobacco smoking status NHIS VA-TOBACCO FORMER USER 03/22/2023 [facility] History of tobacco use [place]-TO[place]ACCO QUIT 1 5 YRS OR MORE 03/22/2023 [facility] Plan of Care List of future care activities from Department [facility] facilities. Additional future care activities may be listed in the Assessment and Plan section. Date/Time Care Activity Care Activity Detail Facili ty 05/08/2025 AMBULATORY - NONE AMBULATORY - NONE [facility] Advance Directives List of completed, amended, or rescinded Advance Directives on record at [facility] facilities. An actual copy of the Directive is not included. Date Advance Directive Provider Source 02/10/2024 ADVANCE DIRECTIVE GRADY HERNANDEZ [facility]
--- OUTSIDE RECORDS SUMMARY | 2025-04-12 12:38 | XMS_ITS | Clinical Summary ---
Author Organization [facility] Address [address] [place] [id number] Care Team Providers Care Salvager Name Role Phone No, Physician Primary Care Provider Allergies Active Allergy Reactions Criticality Noted Date Comments Penicillins Medications rosuvastatin (CRESTOR) 10 mg tablet Take 0.5 tablets (5 mg total) by mouth nightly Active verapamil SR (CALAN SR) 240 mg CR tablet Take 1 tablet (240 mg total) by mouth daily Active hydroCHLOROthiazid e (HYDRODIURIL) 25 mg tablet Take 1 tablet (25 mg total) by mouth daily Active simethicone (MYLICON) 80 mg chewable tablet Take 2 tablets (160 mg total) by mouth 2 (two) times a day as needed for flatulence [address] (PROTONIX) 40 mg EC tabletIndications: Stress Ulcer Prophylaxis,Treatm ent of Non-Bleeding Gastric Disorder Take 1 tablet (40 mg total) by mouth 2 (two) times a day 4 Active miconazole 2 % powder Apply topically 2 (two) times a day 4 Active ondansetron ODT (ZOFRAN-ODT) 4 mg disintegrating tabletIndications: Nausea and Vomiting Take 1 tablet (4 mg total) by mouth every 6 (six) hours as needed for nausea or vomiting 4 Active loperamide (IMODIUM) 2 mg capsule Take 1 capsule (2 mg total) by mouth 3 (three) times a day as needed for diarrhea 4 Active acetaminophen (TYLENOL) 325 mg tabletIndications: Fever,Pain Take 2 tablets (650 mg total) by mouth every 4 (four) hours as needed for pain, fever or headaches 4 Active Active Problems Problem Noted Date Diagnosed Date Fall, initial encounter 01/17/2024 Weakness 01/17/2024 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 No 01/18/2024 Social Connection and Isolation Panel Answer Date Recorded In a typical week, how many times do you talk on the phone with family, friends, or neighbors? Twice a week 01/18/2024 How often do you get together with friends or re latives? Once a week 01/18/2024 How often do you attend amish or gnosticist serv ices? Never 01/18/2024 Do you belong to any clubs o r organizations such as amish groups, unions, fraternal or athletic groups, or school groups? No 01/18/2024 How often do you attend meet ings of the clubs or organizations you belong to? Never 01/18/2024 Are you , , di vorced, , never , or living with a partner? 01/18/2024 AUDIT-C Answer Date Recorded Q1: How often do you have a drink containing alcohol? Never 01/17/2024 Q2: How many drinks containi ng alcohol do you have on a typical day when you are drinking? Patient does not drink Q3: How often do you have si x or more drinks on one occasion? Never 01/17/2024 Overall Financial Resource Strain (CARDIA) Answe r Date Recorded How hard is it for you to pa y for the very basics like food, housing, medical care, and heating? Not hard at all 01/18/2024 Hunger Vital Sign Answer Date Recorded Within the past 12 months, y ou worried that your food would run out before you got the money to buy more. Never true 01/18/20 24 Within the past 12 months, t he food you bought just didn't last and you didn't have money to get more. Never true 01/18/2024 PRAPARE - Transportation Answer Date Re corded In the past 12 months, has l ack of transportation kept you from medical appointments or from getting medications? No 12/2023 In the past 12 months, has l ack of transportation kept you from meetings, work, or from getting things needed for daily living? No 01/18/2024 Housing Stability Vital Sign Answer Andre e Recorded In the last 12 months, was t here a time when you were not able to pay the mortgage or rent on time? No 01/18/2024 In the past 12 months, how m any times have you moved where you were living? 0 01/18/2024 At any time in the past 12 m [facility], were you homeless or living in a usp (including now)? No 01/18/2024 Personal Safety Answer Date Recorded Have you ever been in or are you currently in a harmful physical or emotional relationship or is someone making you feel afraid or unsafe? 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[employer] Gender Identity Male 01/17/2024 6:12 PM CDT Sexual Orientation Not on file Obstetrics History Last Filed Vital Signs Vital Sign Reading Time Taken Comments Blood Pressure 138/76 01/21/2024 3:52 AM CDT Pulse 68 01/21/2024 3:52 AM CDT Temperature 37 C (98.6 F) 01/21/2024 3:52 AM CDT Respiratory Rate 18 01/21/2024 3:52 AM CDT Oxygen Saturation 100% 01/21/2024 3:52 AM CDT Inhaled Oxygen Concentration - - Weight 138.9 kg (306 lb 3.2 oz) 01/17/2024 9:43 PM CDT Height 182.9 cm (6') 01/17/2024 9:43 PM CDT Body Mass Index 41.53 01/17/2024 9:43 PM CDT Plan of Treatment Health Maintenance Due Date Last Done Comments Depression Screening 1945 Hepatitis C Screening 1945 Hepatitis B Screening 1964 Well Visit 65+ 2011 Zoster Vaccine (2 of 2) 12/13/2023 10/18/2023 Covid-19 Vaccine ( season) 2024 07/04/2023, 12/15/2020, 11/24/2020 Fall Risk Assessment 01/19/2025 01/20/2024 Influenza Vaccine (#1) 2025 , 07/19/2019, 06/15/2017 DTaP/Tdap/Td Vaccine (2 - Td or Tdap) 07/19/202912/2018 Pneumococcal vaccine 65+ Completed 03/22/2023 Insurance [facility] ADV[facility]AGE [facility] Advance Directives For more information, please contact: [phone] Documents on File Type Date Recorded Patient Welt Cutter Expl anation ADVANCE DIRECTIVE 01/20/2024 11:03 AM Power of Comprehensive Ophthalmologist-Medical * Full Code (Latest Code Status on File) Date Activated Date Inactivated Comments 01/17/2024 10:26 PM 01/21/2024 11:57 AM Care Teams Salvager Relationship Specialty Start Date End Date No, Physician PCP - General 01/17/24
--- NOTE | 2025-04-12 13:53 | ED.NAVMDI ---
HPI - Nausea/Vomiting/Diarrhea General Chief complaint: Nausea/Vomiting/Diarrhea Stated complaint: n/v Time Seen by Provider: 04/12/25 13:52 Source: patient and EMS Mode of arrival: EMS History of Present Illness HPI Narrative: Patient came to the ED by ambulance from group home complaining nausea, vomiting a started this morning. Patient also reports more weakness than usual in the last few days. Which is intermittent, no radiation. Patient denies any fever, chills, diarrhea or constipation. 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 Related Data Allergies Allergy/AdvReac Type Severity Reaction Status Date / Time Penicillins Allergy Severe RASH, Verified 04/12/25 14:25 [facility] Review of Systems Review of Systems: All systems reviewed & are unremarkable except as noted in HPI and below Exam Narrative: General appearance: Well-developed, well-nourished Skin: Normal color Head: Normocephalic, nontraumatic Eyes: Clear conjunctiva ENT: Oropharynx normal, ears normal, nose normal Neck: Supple, nontender Chest and respiratory: Airway patent, no respiratory distress, no accessory muscle use Heart: Regular rate/rhythm Abdomen: Soft, nontender, no organomegaly, quiet bowel sounds Vascular: Normal peripheral pulses, normal capillary refill. 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 tested, no gross motor deficit Course Vital Signs Vital signs: Vital Signs Temperature 36.5 C 04/12/25 12:43 Pulse Rate 97 04/12/25 12:43 Respiratory Rate 18 04/12/25 12:43 Blood Pressure 141/90 H 04/12/25 12:43 Pulse Oximetry 96 04/12/25 12:43 Oxygen Delivery Room Air 04/12/25 12:43 Temperature 36.4 C 04/12/25 13:50 Pulse Rate 70 04/12/25 18:24 Respiratory Rate 15 04/12/25 18:24 Blood Pressure 100/73 04/12/25 18:24 Pulse Oximetry 93 04/12/25 18:24 Oxygen Delivery Room Air 04/12/25 12:43 MDM - Nausea/Vomiting/Diarrhea MDM Narrative Medical decision making narrative: Patient came with general weakness, nausea and vomiting Vital signs are stable Physical examination is unremarkable Differential diagnosis included dehydration, electrolyte imbalance, urine infection, pneumonia, stress related symptoms, Blood workup today includes CBC, CMP, showed WBC 17.7 potassium 3.1 BUN 38, creatinine 2.01. No old records for comparison, Urinalysis positive for infection Chest x-ray showed no acute abnormality Diagnosis urinary tract infection, kidney failure. Admit to hospitalist Lab Data 04/12/25 14:01 04/12/25 14:01 Labs: Lab Results 04/12/25 04/12/25 04/12/25 Range/Units 14:01 14:04 14:08 WBC 17.7 H (4.5-10.0) K/mm3 RBC 5.70 (4.6-6.20) M/mm3 Hgb 16.8 (14.0-18.0) g/dL Hct 50.2 (42.0-52.0) % MCV 88.1 (80-100) fl MCH 29.5 (26-34) pg MCHC 33.5 (32-36) g/dl RDW 14.9 H (11.5-14.5) % Plt Count 227 (150-375) k/mm3 MPV 9.2 (7.4-10.4) fl Immature Gran % (Auto) 0.5 (0-0.5) % Neut % (Auto) 85.9 H (45.5-73.1) % Lymph % (Auto) 6.2 L (18.3-44.2) % [place] % (Auto) 6.2 (2.6-8.5) % Eos % (Auto) 0.7 (0-4.4) % Baso % (Auto) 0.5 (0.2-1.2) % Lymph # (Auto) 1.09 (0.9-3.2) K/mm3 [place] # (Auto) 1.1 H (0.1-0.6) K/mm3 Eos # (Auto) 0.1 (0-0.3) K/mm3 Baso # (Auto) 0.1 (0.0-0.1) K/mm3 Abs Immat Gran (auto) 0.09 H (0.00-0.031) K/mm3 Absolute Neuts (auto) 15.2 H (1.3-6.7) K/mm3 Absolute Nucleated RBC 0.000 (0.0-0.012) K/mm3 Nucleated RBC % 0.0 (0.0-0.2) % Sodium 139 (137-145) mmol/L Potassium 3.1 L (3.4-5.0) mmol/L Chloride 99 (98-107) mmol/L Carbon Dioxide 24 (22-30) mmol/L Anion Gap 16 H (4-12) mmol/L BUN 38 H (9-20) mg/dL Creatinine 2.01 H (0.7-1.3) mg/dL Estim Creat Clear Calc 38 ml/min Estimated GFR 32 L (59 - ) Glucose 149 H (65-110) mg/dL Calcium 9.7 (8.4-10.2) mg/dL Total Bilirubin 1.0 (0.2-1.3) mg/dL AST 26 (17-59) U/L ALT 16 (6-50) U/L Alkaline Phosphatase 98 (38-126) U/L Total Protein 8.6 H (6.3-8.2) g/dL Albumin 4.6 (3.5-5.1) g/dL Lipase 112 (23-300) U/L Urine Color Yellow (Yellow) Urine Appearance Turbid H (Clear) Urine pH 5.5 (5.0-9.0) Ur Specific [place] 1.018 (1.001-1.035) Urine Protein 2+ H (Negative) mg/dL Urine Glucose (UA) Negative (Negative) mg/dL Urine Ketones Trace H (Negative) mg/dL Ur Blood (Man) 2+ H (Negative) Urine Nitrate Negative (Negative) Urine Bilirubin Negative (Negative) Urine Urobilinogen 1.0 (<2.0) mg/dL Add Ur Microanalysis Reviewed Leukocyte Esterase Rfl 3+ H (Negative) ALIN/UL Urine RBC 21-50 H (0-2) /hpf Urine WBC >100 H (0-3) /hpf Ur Squamous Epith Cells None seen (Few) /hpf Urine Bacteria 2+ H /hpf Urine Casts 6-10 Influenza A (RT-PCR) Negative (Negative) Influenza B (RT-PCR) Negative (Negative) RSV (RT-PCR) Negative (Negative) SARS-CoV-2 RNA (RT-PCR) Negative (Negative) Discharge Plan Discharge Clinical Impression: Urinary tract infection, Kidney failure Patient Disposition: Still a Patient Condition: Stable Additional Instructions: Admit to hospitalist Patient Language: Estonian Follow-up/Referrals: Anson*,Jean-Pierre Flower MD [Physician, Family Practice]
[2025-04-12 14:07] LABS: Hematocrit 50.2 % (42.0-52.0); Hemoglobin 16.8 g/dL (14.0-18.0); Immature Granulocyte Percent A 0.5 % (0-0.5); Lymphocytes Absolute Auto 1.09 K/mm3 (0.9-3.2); Mean Corpuscular HGB Conc 33.5 g/dl (32-36); Mean Corpuscular Hemoglobin 29.5 pg (26-34); Mean Corpuscular Volume 88.1 fl (80-100); Nucleated Red Blood Cells Absolute Auto 0.000 K/mm3 (0.0-0.012); Nucleated Red Blood Cells Perc 0.0 % (0.0-0.2); Platelet Count Result 227 k/mm3 (150-375); Red Blood Count 5.70 M/mm3 (4.6-6.20); White Blood Count 17.7 K/mm3 (4.5-10.0)
[2025-04-12 14:23] LABS: Alanine Aminotransferase 16 U/L (6-50); Albumin Level 4.6 g/dL (3.5-5.1); Alkaline Phosphatase 98 U/L (38-126); Anion Gap 16 mmol/L (4-12); Aspartate Amino Transferase 26 U/L (17-59); Bilirubin,Total 1.0 mg/dL (0.2-1.3); Blood Urea Nitrogen 38 mg/dL (9-20); Calcium 9.7 mg/dL (8.4-10.2); Carbon Dioxide 24 mmol/L (22-30); Chloride 99 mmol/L (98-107); Estimated CRCL calculation 38 ml/min; Estimated Glomerular Filt Rate 32; Glucose 149 mg/dL (65-110); Lipase 112 U/L (23-300); Potassium 3.1 mmol/L (3.4-5.0); Sodium 139 mmol/L (137-145); Total Protein 8.6 g/dL (6.3-8.2)
[2025-04-12 14:24] LABS: Add Urine Microscopic? YES; Appearance Urine Turbid (Clear); Glucose Urine UA Negative (Negative); Leukocyte Esterase Ur 3+ LEU/UL (Negative); Need Manual Microscopic Reviewed; Nitrate Urine Negative (Negative); Specific Grav Ur 1.018 (1.001-1.035)
[2025-04-12] MEDS: ONDANSETRON INJ 4 MG/2 ML VIAL 8 MG IV PUSH (14:24)
[2025-04-12] MEDS: SODIUM CHLORIDE 0.9% IV 1,000 ML 999 ML IV CONT ×2 (14:25→23:33)
[2025-04-12 14:53] LABS: Influenza A QL RT-PCR Negative (Negative); Influenza B QL RT-PCR Negative (Negative); RSV RNA, RT-PCR Negative (Negative); SARS-CoV-2 RNA PCR Negative (Negative)
[2025-04-12] MEDS: levoFLOXacin 750 MG/D5W 150 ML 750 MG/150 ML BAG 100 MG IVPB (16:39)
[2025-04-12] MEDS: POTASSIUM CHLORIDE 20 MEQ PACKET (FOR LIQUID) 40 MEQ PO (18:05)
--- NOTE | 2025-04-12 18:34 | P.HP_ITS ---
H&P: HPI History of Present Illness Date/Time: 04/12/25 18:34 Chief Complaint: Nausea and vomiting Narrative: 79-year-old male presents the hospital complaining of nausea vomiting and weakness. Patient states that he has been at long term for about a year since he had his knee surgery. He states that recently over the last few days he has been more weak and having problems with walking. He states that nausea and vomiting started this morning and he was severe epigastric pain. Denies fever chills In the ED the patient has leukocytosis at 17.7, potassium of 3.1 anion gap is 16, BUN of 38, creatinine at 2.01 estimated GF are of 32, glucose of 149, UA is turbid with trace ketones negative for nitrates 3+ leukocyte esterase wbc's over 102+ bacteria. Influenza A/B, RSV and COVID negative. Patient was started on levofloxacin for UTI and potassium was replaced. Review of Systems Review of Systems: 12 systems were reviewed and are negativ e except for as per HPI. [facility] Family History Family History (Updated 04/12/25 @ 20:26 by Yuliana Glover RN) Other Unknown family medical history Social History Social History (Updated 04/12/25 @ 20:27 by Yuliana Glover RN) Smoking packs per day: 1 Smoking cigarettes per day: 20.0 Years smoked: 30 Smoking pack-years: 30.00 Smoking status: Former smoker Tobacco type: cigarettes Second hand tobacco smoke exposure: No Smoking end date: 08/15/95 Alcohol intake: former Substance use: never Substance use type: does not use Lack of Transportation: No Lack of Food: Never True Current Housing: I Have Housing Concerned About Future Housing: No Difficulty Paying Gas/Electric Bills: No Difficulty Paying for Meds: No Currently Unemployed: No Education: Trade/Vocational Certificate Difficulty w/ Childcare or Family Care: No Living arrangements: long term Occupation/Education: retired Gender identity (if verbalized by the patient): Male Sexual Orientation (if Verbalized by the Patient): Straight or Heterosexual Spiritual care concerns: No Agree to blood products: Yes Meds Home Medications and Allergies Home Medications ?Medication ?Instructions ?Recorded ?Confirmed ?Type acetaminophen 325 mg tablet 650 mg PO Q4H PRN fever or pain 04/12/25 04/12/25 History (Tylenol) baclofen 10 mg tablet 10 mg PO TID 04/12/25 History banana 1 ea PO TID diarrhea 5 04/12/25 History flakes-transgalactooligosaccharide oral powder packet (Banatrol Plus oral powder packet) bisacodyl 10 mg rectal suppository 10 mg RECTAL DAILY PRN constipation 04/12/25 04/12/25 History (Dulcolax (bisacodyl)) hydrochlorothiazide 25 mg tablet 25 mg PO DAILY 04/12/25 History loperamide 2 mg capsule 2 mg PO TID PRN loose stool 04/12/25 04/12/25 History (Anti-Diarrheal (loperamide)) magnesium citrate (Citroma oral 296 ml PO HS PRN const ipation 04/12/25 04/12/25 History solution) magnesium hydroxide 400 mg/5 mL 30 ml PO ONCE PRN cons tipation 04/12/25 04/12/25 History oral suspension ([place] Milk of Magnesia) meloxicam 7.5 mg tablet 7.5 mg PO DAILY 04/12/25 History multivitamin (Daily Multi-Vitamin 1 tablet PO DAILY 04/12/25 History tablet) ondansetron 4 mg disintegrating 4 mg translingual Q6H PRN nausea 04/12/2503/16 History tablet and vomiting pantoprazole 40 mg tablet,delayed 40 mg PO Q12H 04/12/25 History release rosuvastatin 10 mg tablet 5 mg PO DAILY 04/12/2504/12 History semaglutide (weight loss) 0.5 0.5 mg subcut Q7D weight loss 04/12/25 04/12/25 History mg/0.5 mL subcutaneous pen injector silver-calcium alginate 1 ea topical BID 04/12/25 History simethicone 125 mg capsule (Gas-X 250 mg PO BID PRN ab dominal 04/12/25 04/12/25 History Extra Strength) distention simethicone 80 mg chewable tablet 160 mg PO BID PRN ab dominal 04/12/25 04/12/25 History (Gas Relief (simethicone)) distention sodium phosphates 19 gram-7 118 ml RECTAL ONCE PRN con stipation 04/12/25 04/12/25 History gram/118 mL enema (Enema) verapamil 240 mg tablet,extended 240 mg PO QPM 5 04/12/25 History release Allergies Allergy/AdvReac Type Severity Reaction Status Date / Time Penicillins Allergy Severe RASH, Verified 04/12/25 21:00 SYNCOPALTESTED IN [facility] Vital Signs Vital Signs - 24 hr 04/12/25 12:43 04/12/25 13:24 04/12/25 13:30 Temperature 97.7 F Pulse Rate 97 101 H 103 H Respiratory Rate 18 21 H 33 H Blood Pressure 141/90 H 156/138 H Pulse Oximetry 96 100 98 Oxygen Delivery Room Air 04/12/25 13:32 04/12/25 13:45 04/12/25 13:47 Temperature Pulse Rate 112 H 105 H 104 H Respiratory Rate 28 H 19 23 H Blood Pressure 115/93 H Pulse Oximetry 96 92 Oxygen Delivery 04/12/25 13:50 04/12/25 14:00 04/12/25 14:02 Temperature 97.6 F Pulse Rate 110 H 107 H 119 H Respiratory Rate 20 23 H 19 Blood Pressure 123/99 H Pulse Oximetry Oxygen Delivery 04/12/25 14:15 04/12/25 14:17 04/12/25 14:32 Temperature Pulse Rate 106 H 107 H 99 Respiratory Rate 26 H 22 H 27 H Blood Pressure 137/91 H 134/109 H Pulse Oximetry 95 96 93 Oxygen Delivery 04/12/25 14:47 04/12/25 15:01 04/12/25 15:17 Temperature Pulse Rate 95 98 99 Respiratory Rate 18 19 21 H Blood Pressure 104/92 H 113/89 135/58 L Pulse Oximetry 93 92 92 Oxygen Delivery 04/12/25 15:32 04/12/25 15:47 04/12/25 16:02 Temperature Pulse Rate 96 98 94 Respiratory Rate 24 H 23 H 22 H Blood Pressure 135/82 106/64 113/86 Pulse Oximetry 95 92 94 Oxygen Delivery 04/12/25 16:16 04/12/25 16:47 04/12/25 17:35 Temperature Pulse Rate 93 88 69 Respiratory Rate 26 H 25 H 22 H Blood Pressure 135/88 111/84 110/62 Pulse Oximetry 90 95 91 Oxygen Delivery 04/12/25 18:24 Temperature Pulse Rate 70 Respiratory Rate 15 Blood Pressure 100/73 Pulse Oximetry 93 Oxygen Delivery Exam Narrative: General: well appearing, appears stated age. HEENT: normocephalic, atraumatic. Mucous membranes moist. EOMI, PERRLA, bilateral sclera anicteric, no conjunctival injection. Neck supple without JVD, lymphadenopathy, or bruit. Respiratory: clear to ascultation bilaterally. No rales/rhonic/wheezes. Cardiovascular: Regular rate and rhythm, normal S1-S2 upon ascultation. No murmurs, rubs, or clicks. PMI is nondisplaced, capillary refill less than 3 second. Abdomen: Obese Soft, round, no pulsatile masses, nondistended and nontender. No rebound, no guarding. No CVA tenderness, no hepatosplenomegaly. Bowel sounds present to all four quadrants. No high pitch or tinkling sounds, resonant to percussion. Extremities: No cyanosis, clubbing, or edema present. Pulses are palpable 2/2. Active ROM to all four extremities. Neuro: Alert and orientated x 4. PERRLA. Cranial nerves 2-12 intact without focal deficit. Skin: Warm, dry, and intact, without rash, erythema, or lesion. Psych: pleasant, cooperative, normal speech, normal affect, no hallucinations, no dysarthia H&P: Results Labs Labs: Short CBC 04/12/25 Range/Units 14:01 WBC 17.7 H (4.5-10.0) K/mm3 Hgb 16.8 (14.0-18.0) g/dL Hct 50.2 (42.0-52.0) % Plt Count 227 (150-375) k/mm3 BMP 04/12/25 14:01 Sodium 139 Potassium 3.1 L Chloride 99 Carbon Dioxide 24 BUN 38 H Creatinine 2.01 H Glucose 149 H Calcium 9.7 Liver Function 04/12/25 Range/Units 14:01 Total Bilirubin 1.0 (0.2-1.3) mg/dL AST 26 (17-59) U/L ALT 16 (6-50) U/L Alkaline Phosphatase 98 (38-126) U/L Albumin 4.6 (3.5-5.1) g/dL Urine 04/12/25 Range/Units 14:04 Urine Color Yellow (Yellow) Urine Appearance Turbid H (Clear) Urine pH 5.5 (5.0-9.0) Ur Specific [place] 1.018 (1.001-1.035) Urine Protein 2+ H (Negative) mg/dL Urine Glucose (UA) Negative (Negative) mg/dL Assessment and Plan Assessment and plan (1) Urinary tract infection: Code(s): N39.0 - Urinary tract infection, site not specified Status: Acute Assessment and Plan: IV levofloxacin Culture and sensitivity pending IVF (2) Kidney failure: Code(s): N19 - Unspecified kidney failure Status: Acute Assessment and Plan: Fluid bolus followed by IVF Repeat BMP in the morning (3) Hyperglycemia: Code(s): R73.9 - Hyperglycemia, unspecified Status: Acute Assessment and Plan: A1c pending Accu-Cheks a.c. HS (4) Weakness: Code(s): R53.1 - Weakness Status: Acute Assessment and Plan: Likely related to dehydration infection Treat underlying cause PT OT eval and treat (5) Hypokalemia: Code(s): E87.6 - Hypokalemia Status: Acute Assessment and Plan: Replaced in ED BMP in the morning Root complete electrolytes as needed (6) Dehydration: Code(s): E86.0 - Dehydration Status: Acute Assessment and Plan: Patient has minimal dark gwen urine output Bladder scan Fluid bolus followed by IVF Holding hydrochlorothiazide Quality VTE Prophylaxis VTE prophylaxis: mechanical ordered and pharmacologic ordered Hospitalist MIPS Advance Care Plan I have confirmed that the patient's Advanced Care Plan is present, code status is documented, or surrogate decision maker is listed in patient medical record.: Yes Medication Reconciliation I have utilized all available resources to obtain, update and review the patients current medications (includes all prescriptions, OTC, herbals, cannabis, and nutritional supplements).: Yes
--- NOTE | 2025-04-12 19:00 | ADMGEN ---
This patient, Villa Renteria, was admitted to Medical Room 256-01. Patient/family oriented to hospital policies and general routines including ID bracelet, bed and alarms, visiting hours, pain management, procedures, bathroom and other care routines, personal items, smoking policy, room service/diet, and visiting hours. Information on how to activate the Rapid Response Team has been discussed. Patient/Family are encouraged to report perceived risks to care and to ask questions if they do not understand what they are told or what they should do.
--- NOTE | 2025-04-12 19:52 | WNDPHOTO ---
PHOTO ONLY - See Nursing Notes and/ or assessments for documenta midion. ack
--- NOTE | 2025-04-12 19:54 | WNDPHOTO ---
Addendum entered by Yuliana Glover RN 04/12/25 20:21: MID BACK; ~0.5in diameter. s/p boil incision and drainage at half-way per pt. cleaned w/ s&w and dressed w/ mepilex. Original Note: PHOTO ONLY - See Nursing Notes and/ or assessments for documentation.
[2025-04-12] MEDS: SODIUM CHLORIDE 0.9% IV 1,000 ML 100 ML IV CONT (21:27)
[2025-04-12] MEDS: PANTOPRAZOLE SODIUM IV 40 MG VIAL IV PUSH (23:33)
[2025-04-13 04:41] LABS: Hematocrit 41.5 % (42.0-52.0); Hemoglobin 13.6 g/dL (14.0-18.0); Immature Granulocyte Percent A 0.5 % (0-0.5); Lymphocytes Absolute Auto 1.26 K/mm3 (0.9-3.2); Mean Corpuscular HGB Conc 32.8 g/dl (32-36); Mean Corpuscular Hemoglobin 29.6 pg (26-34); Mean Corpuscular Volume 90.2 fl (80-100); Nucleated Red Blood Cells Absolute Auto 0.000 K/mm3 (0.0-0.012); Nucleated Red Blood Cells Perc 0.0 % (0.0-0.2); Platelet Count Result 172 k/mm3 (150-375); Red Blood Count 4.60 M/mm3 (4.6-6.20); White Blood Count 8.6 K/mm3 (4.5-10.0)
[2025-04-13 05:08] LABS: Anion Gap 9 mmol/L (4-12); Blood Urea Nitrogen 43 mg/dL (9-20); Calcium 8.6 mg/dL (8.4-10.2); Carbon Dioxide 24 mmol/L (22-30); Chloride 103 mmol/L (98-107); Estimated CRCL calculation 36 ml/min; Estimated Glomerular Filt Rate 31; Glucose 97 mg/dL (65-110); Potassium 3.4 mmol/L (3.4-5.0); Sodium 136 mmol/L (137-145)
[2025-04-13 05:16] LABS: Hemoglobin A1C 5.1 % (<5.7)
[2025-04-13 05:38] VITALS: BP 127/62; PULSE 65; RESP 16; TEMP 36.3; O2SAT 94
[2025-04-13] MEDS: BACLOFEN 10 MG TABLET PO ×3 (05:50→20:20)
--- NOTE | 2025-04-13 07:50 | P.PNIM_ITS ---
Progress Note: A&P Assessment and Plan (1) Urinary tract infection: Code(s): N39.0 - Urinary tract infection, site not specified Status: Acute (2) Hyperglycemia: Code(s): R73.9 - Hyperglycemia, unspecified Status: Acute (3) Weakness: Code(s): R53.1 - Weakness Status: Acute (4) Hypokalemia: Code(s): E87.6 - Hypokalemia Status: Acute (5) Dehydration: Code(s): E86.0 - Dehydration Status: Acute (6) Leukoaraiosis: Code(s): I67.81 - Acute cerebrovascular insufficiency Status: Acute (7) SHAR (acute kidney injury): Code(s): N17.9 - Acute kidney failure, unspecified Status: Acute (8) Diarrhea: Code(s): R19.7 - Diarrhea, unspecified Status: Acute Plan 1.Generalized weakness likely 2/2 UTI/Dehydration/Electrolyte abnormality IVF,UTI treatment and electrolyte replacement PT/OT Orthostatic blood pressure Qshift 2.Hypokalemia Replaced, poor oral intake and GI loss Repeat K 3.4, will give 20 meq today 3.UTI Patient reports urinary frequency and urgency UA shows 3+ leukocytes trace, greater than 100 urine WBC, 2+ bacteria but nega tive nitrate ED start him on Levaquin Stat ceftriaxone Follow Ucx and bcx 4.Hypertension BP stable Will resume home blood pressure medication if need be 5. Chronic diarrhea Unknown etiology Continue to monitor 6. Kidney injury Unknown baseline creatinine creatinine on this admission 2.01 and this morning 2.07 Avoid any nephrogenic agent including contrast and NSAID BMP daily 7. Disposition Lives at [facility] for rehab over a year. He went there for his bilateral hip replacement preoperation medical optimization. He made so much progress. Time Spent With Patient Time: 30 minutes Subjective Date/time seen: 04/13/25 07:50 Interval history: Villa medrano is a who is at [facility] for Rehab for bilateral hip surgery preoperative medical optimization. Nursing staff was concerned for quiet bowel activity and sound concern for bowel obstruction even though patient was having diarrhea. He had 1 episode of vomiting which was described it had any color. Patient said he had coca drink. Patient and daughter reports that patient has intermittent diarrhea. He denies tarry stool/hematochezia. Exam Narrative: APPEARANCE: morbidly obese, anxious EYES: EOMI HEENT: Normocephalic, atraumatic, OMM RESPIRATORY: No respiratory distress Clear to auscultation bilaterally with no rhonchi wheezing or rales. CARDIOVASCULAR: RRR, S1 and S2 without murmurs rubs or gallops. ABDOMINAL: Abdominal distension, Soft, nontender, nondistended, no rebound or guarding MSK: Range of motion is normal NEURO: Awake and alert. Following commands, speech normal, no focal deficits SKIN:: Warm, dry. No rashes lesions or abrasions PSYCHIATRIC: Normal affect/mood, Objective Data Vital Signs Vital Signs: Vital Signs - 24 hr 04/12/25 12:43 04/12/25 13:24 04/12/25 13:30 Temperature 36.5 C Pulse Rate 97 101 H 103 H Respiratory Rate 18 21 H 33 H Blood Pressure 141/90 H 156/138 H Pulse Oximetry 96 100 98 Oxygen Delivery Room Air 04/12/25 13:32 04/12/25 13:45 04/12/25 13:47 Temperature Pulse Rate 112 H 105 H 104 H Respiratory Rate 28 H 19 23 H Blood Pressure 115/93 H Pulse Oximetry 96 92 Oxygen Delivery 04/12/25 13:50 04/12/25 14:00 04/12/25 14:02 Temperature 36.4 C Pulse Rate 110 H 107 H 119 H Respiratory Rate 20 23 H 19 Blood Pressure 123/99 H Pulse Oximetry Oxygen Delivery 04/12/25 14:15 04/12/25 14:17 04/12/25 14:32 Temperature Pulse Rate 106 H 107 H 99 Respiratory Rate 26 H 22 H 27 H Blood Pressure 137/91 H 134/109 H Pulse Oximetry 95 96 93 Oxygen Delivery 04/12/25 14:47 04/12/25 15:01 04/12/25 15:17 Temperature Pulse Rate 95 98 99 Respiratory Rate 18 19 21 H Blood Pressure 104/92 H 113/89 135/58 L Pulse Oximetry 93 92 92 Oxygen Delivery 04/12/25 15:32 04/12/25 15:47 04/12/25 16:02 Temperature Pulse Rate 96 98 94 Respiratory Rate 24 H 23 H 22 H Blood Pressure 135/82 106/64 113/86 Pulse Oximetry 95 92 94 Oxygen Delivery 04/12/25 16:16 04/12/25 16:47 04/12/25 17:35 Temperature Pulse Rate 93 88 69 Respiratory Rate 26 H 25 H 22 H Blood Pressure 135/88 111/84 110/62 Pulse Oximetry 90 95 91 Oxygen Delivery 04/12/25 18:24 04/12/25 20:14 04/13/25 05:38 Temperature 35.7 C L 36.3 C L Pulse Rate 70 77 65 Respiratory Rate 15 12 16 Blood Pressure 100/73 101/52 L 127/62 Pulse Oximetry 93 90 94 Oxygen Delivery Intake/Output Intake/Output: Intake & Output 04/10/25 04/11/25 04/12/25 04/13/25 23:59 23:59 23:59 23:59 Intake Total 1361.7 1300 Output Total 150 400 Balance 1211.7 900 Meds/Results Medications: Active Medications Generic Name Dose Route Start Last Admin Trade Name Freq PRN Reason Stop Dose Admin Acetaminophen 650 mg 04/12/25 18:38 Acetaminophen 325 Mg Tablet PO Q4H PRN Mild Pain (1-3) or Fever Hydrocodone Bitart/Acetaminophen 1 tab 04/12/25 18:38 Hydrocodone/Acetaminophen (*Crx) 5-325 Mg Tablet PO Q4H PRN Moderate Pain (4-6) Baclofen 10 mg 04/13/25 06:00 04/13/25 05:50 Baclofen 10 Mg Tablet PO 10 mg Q8HR [facility] Administration Bisacodyl 10 mg 04/12/25 21:07 Bisacodyl 10 Mg Suppository RECTAL DAILY PRN Constipation Dextrose 12.5 gm 04/12/25 18:38 Dextrose 50% 25 Gm/50 Ml Syringe IV PUSH PRN PRN Hypoglycemia Protocol Docusate Sodium 100 mg 04/13/25 09:00 Docusate Sodium 100 Mg Capsule PO BID KIMBERLI Enoxaparin Sodium 40 mg 04/13/25 09:00 Enoxaparin 40 Mg/0.4 Ml Syringe SUB-Q DAILY KIMBERLI Glucagon 1 mg 04/12/25 18:38 Glucagon For Inj 1 Mg Vial IM PRN PRN Hypoglycemia Protocol Glucose 15 gm 04/12/25 18:38 Glucose Oral Gel 15 Gm Of Glucse In 37.5 Gm Tube PO PRN PRN Hypoglycemia Protocol Sodium Chloride 1,000 mls @ 100 mls/hr 04/12/25 18:40 04/13/25 00:34 Normal Saline Iv IV CONT 100 mls/hr .Q10H KIMBERLI Infusion Dextrose 1,000 mls @ 100 mls/hr 04/12/25 18:38 Dextrose 5% 1,000 Ml IVPB PRN PRN Hypoglycemia Protocol Meloxicam 7.5 mg 04/13/25 09:00 Meloxicam 7.5 Mg Tablet PO DAILY [facility] Pantoprazole Sodium 40 mg 04/12/25 22:55 04/12/25 23:33 Pantoprazole Sodium Iv 40 Mg Vial IV PUSH 40 mg Q12HR KIMBER[facility] Administration Potassium Chloride 20 meq 04/13/25 07:39 Potassium Chloride 20 Meq Er Tablet PO 04/13/25 07:40 ONCE ONE Rosuvastatin Calcium 5 mg 04/13/25 09:00 Rosuvastatin 5 Mg Tablet PO DAILY [facility] Trimethobenzamide HCl 200 mg 04/12/25 18:38 Trimethobenzamide Hcl 200 Mg/2 Ml Vial IM Q6H PRN Nausea And Vomiting Verapamil HCl 240 mg 04/13/25 18:00 Verapamil Hcl Er 240 Mg Tablet.Er PO QPM [facility] Radiology Results: ITS Impressions Chest X-Ray 04/12/25 14:29 Impression: No acute cardiopulmonary abnormality. Labs Labs: Laboratory Results - last 24 hr 04/12/25 04/12/25 04/12/25 14:01 14:04 14:08 WBC 17.7 H RBC 5.70 Hgb 16.8 Hct 50.2 MCV 88.1 MCH 29.5 MCHC 33.5 RDW 14.9 H Plt Count 227 MPV 9.2 Immature Gran % (Auto) 0.5 Neut % (Auto) 85.9 H Lymph % (Auto) 6.2 L Walton % (Auto) 6.2 Eos % (Auto) 0.7 Baso % (Auto) 0.5 Lymph # (Auto) 1.09 Walton # (Auto) 1.1 H Eos # (Auto) 0.1 Baso # (Auto) 0.1 Abs Immat Gran (auto) 0.09 H Absolute Neuts (auto) 15.2 H Absolute Nucleated RBC 0.000 Nucleated RBC % 0.0 Sodium 139 Potassium 3.1 L Chloride 99 Carbon Dioxide 24 Anion Gap 16 H BUN 38 H Creatinine 2.01 H Estim Creat Clear Calc 38 Estimated GFR 32 L Glucose 149 H POC Capillary Glucose Hemoglobin A1c Calcium 9.7 Total Bilirubin 1.0 AST 26 ALT 16 Alkaline Phosphatase 98 Total Protein 8.6 H Albumin 4.6 Lipase 112 Urine Color Yellow Urine Appearance Turbid H Urine pH 5.5 Ur Specific Vera 1.018 Urine Protein 2+ H Urine Glucose (UA) Negative Urine Ketones Trace H Ur Blood (Man) 2+ H Urine Nitrate Negative Urine Bilirubin Negative Urine Urobilinogen 1.0 Add Ur Microanalysis Reviewed Leukocyte Esterase Rfl 3+ H Urine RBC 21-50 H Urine WBC >100 H Ur Squamous Epith Cells None seen Urine Bacteria 2+ H Urine Casts 6-10 Influenza A (RT-PCR) Negative Influenza B (RT-PCR) Negative RSV (RT-PCR) Negative SARS-CoV-2 RNA (RT-PCR) Negative 04/12/25 04/13/25 20:17 04:29 WBC 8.6 RBC 4.60 Hgb 13.6 L D Hct 41.5 L MCV 90.2 MCH 29.6 MCHC 32.8 RDW 14.9 H Plt Count 172 MPV 9.4 Immature Gran % (Auto) 0.5 Neut % (Auto) 74.1 H Lymph % (Auto) 14.6 L Walton % (Auto) 8.9 H Eos % (Auto) 1.4 Baso % (Auto) 0.5 Lymph # (Auto) 1.26 Walton # (Auto) 0.8 H Eos # (Auto) 0.1 Baso # (Auto) 0.0 Abs Immat Gran (auto) 0.04 H Absolute Neuts (auto) 6.4 Absolute Nucleated RBC 0.000 Nucleated RBC % 0.0 Sodium 136 L Potassium 3.4 Chloride 103 Carbon Dioxide 24 Anion Gap 9 BUN 43 H Creatinine 2.07 H Estim Creat Clear Calc 36 Estimated GFR 31 L Glucose 97 POC Capillary Glucose 119 H Hemoglobin A1c 5.1 Calcium 8.6 Total Bilirubin AST ALT Alkaline Phosphatase Total Protein Albumin Lipase Urine Color Urine Appearance Urine pH Ur Specific Vera Urine Protein Urine Glucose (UA) Urine Ketones Ur Blood (Man) Urine Nitrate Urine Bilirubin Urine Urobilinogen Add Ur Microanalysis Leukocyte Esterase Rfl Urine RBC Urine WBC Ur Squamous Epith Cells Urine Bacteria Urine Casts Influenza A (RT-PCR) Influenza B (RT-PCR) RSV (RT-PCR) SARS-CoV-2 RNA (RT-PCR) Quality VTE Prophylaxis VTE prophylaxis: mechanical ordered and pharmacologic ordered (Lovenox)
[2025-04-13 08:25] VITALS: O2SAT 94
[2025-04-13] MEDS: ROSUVASTATIN 5 MG TABLET PO (09:40)
[2025-04-13] MEDS: POTASSIUM CHLORIDE 20 MEQ ER TABLET PO (09:40)
[2025-04-13] MEDS: MELOXICAM 7.5 MG TABLET PO (09:40)
[2025-04-13] MEDS: ENOXAPARIN 40 MG/0.4 ML SYRINGE SUB-Q (09:41)
[2025-04-13] MEDS: PANTOPRAZOLE SODIUM IV 40 MG VIAL IV PUSH ×2 (09:42→20:20)
[2025-04-13 13:48] VITALS: BP 123/56; PULSE 68; RESP 20; TEMP 36.3; O2SAT 96
[2025-04-13 13:49] VITALS: BP 120/66; PULSE 87; TEMP 36.3; O2SAT 93
[2025-04-13 13:50] VITALS: BP 148/59; PULSE 92; TEMP 36.3; O2SAT 98
[2025-04-13] MEDS: cefTRIAXone 1 GM in SODIUM CHLORIDE 0.9% IV 50 ML 100 ML IVPB (15:08)
[2025-04-13] MEDS: SODIUM CHLORIDE 0.9% IV 1,000 ML 100 ML IV CONT (16:35)
[2025-04-13] MEDS: VERAPAMIL HCL ER 240 MG TABLET.ER PO (18:00)
[2025-04-13 20:33] VITALS: BP 104/40; PULSE 77; RESP 20; TEMP 36.3; O2SAT 96
[2025-04-14 04:19] VITALS: BP 135/66; PULSE 64; RESP 18; TEMP 36.1; O2SAT 96
[2025-04-14] MEDS: SODIUM CHLORIDE 0.9% IV 1,000 ML 100 ML IV CONT ×2 (04:22→17:06)
[2025-04-14 05:03] LABS: Alanine Aminotransferase 9 U/L (6-50); Albumin Level 3.0 g/dL (3.5-5.1); Alkaline Phosphatase 62 U/L (38-126); Anion Gap 6 mmol/L (4-12); Aspartate Amino Transferase 21 U/L (17-59); Bilirubin,Total 0.3 mg/dL (0.2-1.3); Blood Urea Nitrogen 33 mg/dL (9-20); Calcium 8.5 mg/dL (8.4-10.2); Carbon Dioxide 25 mmol/L (22-30); Chloride 105 mmol/L (98-107); Estimated CRCL calculation 49 ml/min; Estimated Glomerular Filt Rate 45; Glucose 98 mg/dL (65-110); Potassium 3.4 mmol/L (3.4-5.0); Sodium 136 mmol/L (137-145); Total Protein 5.9 g/dL (6.3-8.2)
[2025-04-14] MEDS: BACLOFEN 10 MG TABLET PO ×3 (05:47→21:44)
--- NOTE | 2025-04-14 07:25 | PM.IMPN ---
Progress Note: A&P Assessment and Plan (1) Urinary tract infection: Code(s): N39.0 - Urinary tract infection, site not specified Status: Acute (2) Hyperglycemia: Code(s): R73.9 - Hyperglycemia, unspecified Status: Acute (3) Weakness: Code(s): R53.1 - Weakness Status: Acute (4) Hypokalemia: Code(s): E87.6 - Hypokalemia Status: Acute (5) Dehydration: Code(s): E86.0 - Dehydration Status: Acute (6) Leukoaraiosis: Code(s): I67.81 - Acute cerebrovascular insufficiency Status: Acute (7) SHAR (acute kidney injury): Code(s): N17.9 - Acute kidney failure, unspecified Status: Acute (8) Diarrhea: Code(s): R19.7 - Diarrhea, unspecified Status: Acute Plan 1.Generalized weakness likely 2/2 UTI/Dehydration/Electrolyte abnormality IVF,UTI treatment and electrolyte replacement PT/OT Reports subjectively feeling better 2.Hypokalemia Replaced, poor oral intake and GI loss K 3.4 today 3.UTI Patient reports urinary frequency and urgency UA shows 3+ leukocytes trace, greater than 100 urine WBC, 2+ bacteria but negative nitrate Leukocytosis resolved Continue ceftriaxone Urine culture grows Gram-negative bacilli isolated Follow susceptibilities 4.Hypertension BP stable Will resume home blood pressure medication if need be 5. Chronic diarrhea-improving Unknown etiology Continue to monitor 6. Kidney injury Unknown baseline creatinine creatinine on this admission 2.01 and 1.52-significantly improved Avoid any nephrogenic agent including contrast and NSAID BMP daily 7. Disposition Lives at [facility] for rehab over a year. He went there for his bilateral hip replacement preoperation medical optimization. He made so much progress. Time Spent With Patient Time: 20 minutes Subjective Date/time seen: 04/14/25 07:25 Interval history: Diarrhea improved. AKA improved- creatinine creatinine today 1.52 compared to his admission 2.07. He has more energy. He sees the in the chair. Plan was discussed was patient and his daughter at bedside. Review of Systems Review of Systems: 12 systems were reviewed and are negative except for as per HPI. Exam Narrative: APPEARANCE: morbidly obese, comfortable sitting in the chair. EYES: EOMI HEENT: Normocephalic, atraumatic, OMM RESPIRATORY: No respiratory distress Clear to auscultation bilaterally with no rhonchi wheezing or rales. CARDIOVASCULAR: RRR, S1 and S2 without murmurs rubs or gallops. ABDOMINAL: Abdominal distension, Soft, nontender, nondistended, no rebound or guarding MSK: Range of motion is normal NEURO: Awake and alert. Following commands, speech normal, no focal deficits SKIN:: Warm, dry. No rashes lesions or abrasions PSYCHIATRIC: Normal affect/mood, Objective Data Vital Signs Vital Signs: Vital Signs - 24 hr 04/13/25 08:00 04/13/25 08:25 04/13/25 13:48 Temperature 36.3 C L Pulse Rate 68 Respiratory Rate 20 Blood Pressure 123/56 L Pulse Oximetry 94 96 Oxygen Delivery Room Air Room Air 04/13/25 13:49 04/13/25 13:50 04/13/25 13:55 Temperature 36.3 C L 36.3 C L Pulse Rate 87 92 Respiratory Rate Blood Pressure 120/66 148/59 H Pulse Oximetry 93 98 Oxygen Delivery Room Air 04/13/25 20:00 04/13/25 20:33 04/14/25 04:19 Temperature 36.3 C L 36.1 C L Pulse Rate 77 64 Respiratory Rate 20 18 Blood Pressure 104/40 L 135/66 Pulse Oximetry 96 96 Oxygen Delivery Room Air Intake/Output Intake/Output: Intake & Output 04/11/25 04/12/25 04/13/25 04/14/25 23:59 23:59 23:59 23:59 Intake Total 1361.7 3175.3 1300 Output Total 150 1100 950 Balance 1211.7 2075.3 350 Meds/Results Medications: Active Medications Generic Name Dose Route Start Last Admin Trade Name Freq PRN Reason Stop Dose Admin Acetaminophen 650 mg 04/12/25 18:38 Acetaminophen 325 Mg Tablet PO Q4H PRN Mild Pain (1-3) or Fever Hydrocodone Bitart/Acetaminophen 1 tab 04/12/25 18:38 Hydrocodone/Acetaminophen (*Crx) 5-325 Mg Tablet PO Q4H PRN Moderate Pain (4-6) Baclofen 10 mg 04/13/25 06:00 04/14/25 05:47 Baclofen 10 Mg Tablet PO 10 mg Q8HR [facility] Administration Bisacodyl 10 mg 04/12/25 21:07 Bisacodyl 10 Mg Suppository RECTAL DAILY PRN Constipation Dextrose 12.5 gm 04/12/25 18:38 Dextrose 50% 25 Gm/50 Ml Syringe IV PUSH PRN PRN Hypoglycemia Protocol Docusate Sodium 100 mg 04/13/25 09:00 04/13/25 10:10 Docusate Sodium 100 Mg Capsule PO Not Given BID KIMBERLI Enoxaparin Sodium 40 mg 04/13/25 09:00 04/13/25 09:41 Enoxaparin 40 Mg/0.4 Ml Syringe SUB-Q 40 mg DAILY [facility] Administration Glucagon 1 mg 04/12/25 18:38 Glucagon For Inj 1 Mg Vial IM PRN PRN Hypoglycemia Protocol Glucose 15 gm 04/12/25 18:38 Glucose Oral Gel 15 Gm Of Glucse In 37.5 Gm Tube PO PRN PRN Hypoglycemia Protocol Sodium Chloride 1,000 mls @ 100 mls/hr 04/12/25 18:40 04/14/25 04:22 Normal Saline Iv IV CONT 100 mls/hr .Q10H [facility] Administration Dextrose 1,000 mls @ 100 mls/hr 04/12/25 18:38 Dextrose 5% 1,000 Ml IVPB PRN PRN Hypoglycemia Protocol Ceftriaxone Sodium 1 gm/ 50 mls @ 100 mls/hr 04/13/25 13:00 04/13/25 15:08 Sodium Chloride IVPB 0 mls/hr Q24H KIMBER[facility] Infusion Meloxicam 7.5 mg 04/13/25 09:00 04/13/25 09:40 Meloxicam 7.5 Mg Tablet PO 7.5 mg DAILY [facility] Administration Pantoprazole Sodium 40 mg 04/12/25 22:55 04/13/25 20:20 Pantoprazole Sodium Iv 40 Mg Vial IV PUSH 40 mg Q12HR [facility]BER[facility] Administration Rosuvastatin Calcium 5 mg 04/13/25 09:00 04/13/25 09:40 Rosuvastatin 5 Mg Tablet PO 5 mg DAILY [facility] Administration Trimethobenzamide HCl 200 mg 04/12/25 18:38 Trimethobenzamide Hcl 200 Mg/2 Ml Vial IM Q6H PRN Nausea And Vomiting Verapamil HCl 240 mg 04/13/25 18:00 04/13/25 18:00 Verapamil Hcl Er 240 Mg Tablet.Er PO 240 mg QPM [facility]IMBERLI Administration Radiology Results: ITS Impressions Chest X-Ray 04/12/25 14:29 Impression: No acute cardiopulmonary abnormality. Labs Labs: Laboratory Results - last 24 hr 04/13/25 04/13/25 04/13/25 07:51 11:22 16:29 Sodium Potassium Chloride Carbon Dioxide Anion Gap BUN Creatinine Estim Creat Clear Calc Estimated GFR Glucose POC Capillary Glucose 95 86 124 H Calcium Total Bilirubin AST ALT Alkaline Phosphatase Total Protein Albumin 04/13/25 04/14/25 20:38 04:35 Sodium 136 L Potassium 3.4 Chloride 105 Carbon Dioxide 25 Anion Gap 6 BUN 33 H D Creatinine 1.52 H Estim Creat Clear Calc 49 Estimated GFR 45 L Glucose 98 POC Capillary Glucose 99 Calcium 8.5 Total Bilirubin 0.3 AST 21 ALT 9 Alkaline Phosphatase 62 Total Protein 5.9 L Albumin 3.0 L Quality VTE Prophylaxis VTE prophylaxis: mechanical ordered and pharmacologic ordered (Lovenox)
[2025-04-14] MEDS: ENOXAPARIN 40 MG/0.4 ML SYRINGE SUB-Q (08:42)
[2025-04-14] MEDS: MELOXICAM 7.5 MG TABLET PO (08:42)
[2025-04-14] MEDS: ROSUVASTATIN 5 MG TABLET PO (08:42)
[2025-04-14] MEDS: PANTOPRAZOLE SODIUM IV 40 MG VIAL IV PUSH ×2 (08:42→21:44)
[2025-04-14] MEDS: cefTRIAXone 1 GM in SODIUM CHLORIDE 0.9% IV 50 ML 100 ML IVPB (13:09)
[2025-04-14 14:00] VITALS: BP 133/54; PULSE 95; RESP 16; TEMP 36.5; O2SAT 95
[2025-04-14] MEDS: VERAPAMIL HCL ER 240 MG TABLET.ER PO (17:06)
[2025-04-14 20:16] VITALS: BP 119/42; PULSE 67; RESP 20; TEMP 36.4; O2SAT 96
[2025-04-15] MEDS: SODIUM CHLORIDE 0.9% IV 1,000 ML 100 ML IV CONT ×2 (03:25→12:32)
[2025-04-15 04:55] LABS: Alanine Aminotransferase 9 U/L (6-50); Albumin Level 2.9 g/dL (3.5-5.1); Alkaline Phosphatase 57 U/L (38-126); Anion Gap 6 mmol/L (4-12); Aspartate Amino Transferase 19 U/L (17-59); Bilirubin,Total 0.2 mg/dL (0.2-1.3); Blood Urea Nitrogen 24 mg/dL (9-20); Calcium 8.4 mg/dL (8.4-10.2); Carbon Dioxide 25 mmol/L (22-30); Chloride 106 mmol/L (98-107); Estimated CRCL calculation 55 ml/min; Estimated Glomerular Filt Rate 51; Glucose 96 mg/dL (65-110); Potassium 3.0 mmol/L (3.4-5.0); Sodium 137 mmol/L (137-145); Total Protein 5.7 g/dL (6.3-8.2)
[2025-04-15] MEDS: BACLOFEN 10 MG TABLET PO ×2 (05:26→13:15)
[2025-04-15 06:00] VITALS: BP 114/61; PULSE 60; RESP 18; TEMP 36.2; O2SAT 95
[2025-04-15] MEDS: MELOXICAM 7.5 MG TABLET PO (08:50)
[2025-04-15] MEDS: ROSUVASTATIN 5 MG TABLET PO (08:50)
[2025-04-15] MEDS: POTASSIUM CHLORIDE 20 MEQ ER TABLET 40 MEQ PO (08:50)
[2025-04-15] MEDS: ENOXAPARIN 40 MG/0.4 ML SYRINGE SUB-Q (08:50)
[2025-04-15] MEDS: PANTOPRAZOLE SODIUM IV 40 MG VIAL IV PUSH (08:51)
[2025-04-15] MEDS: cefTRIAXone 1 GM in SODIUM CHLORIDE 0.9% IV 50 ML 100 ML IVPB (12:32)
[2025-04-15 13:53] VITALS: BP 134/92; PULSE 68; RESP 18; TEMP 36.6; O2SAT 96
[2025-04-15 15:52] LABS: Potassium 3.8 mmol/L (3.4-5.0)
--- NOTE | 2025-04-15 16:01 | P.DS_ITS ---
DS: Admitting Diagnosis Discharge Date 04/15/2025 Admitting Diagnosis Generalized weakness UTI DS: Discharge Diagnosis Discharge Diagnosis (1) Diarrhea: Code(s): R19.7 - Diarrhea, unspecified Status: Acute (2) SHAR (acute kidney injury): Code(s): N17.9 - Acute kidney failure, unspecified Status: Acute (3) Hypokalemia: Code(s): E87.6 - Hypokalemia Status: Acute (4) Weakness: Code(s): R53.1 - Weakness Status: Acute (5) Urinary tract infection: Code(s): N39.0 - Urinary tract infection, site not specified Status: Acute Plan UTI-finish Keflex 500 mg t.i.d. for 4 days SHAR DS: Summary Hospital Course Reason for hospitalization: Generalize weakness SHAR UTI Hospital Course: Villa Renteria is a 79 year old male with pmhx of hypertension/hyperlipidemia/obesity/CKD who presents with generalized weakness from skilled nursing. UA shows UTI. He was treated with ceftriaxone and switched to Keflex upon discharge. Urine culture shows Gram-negative bacilli isolated, sensitivities pending. Patient is doing well. He was discharged back to the skilled nursing. His kidney function is improving but he still needs follow up with his PCP and BMP in a few days. Status at Discharge Functional status at discharge: uses cane/walker Time Spent with Patient Time attestation: 35 minutes Total time spent providing and/or coordinating discharge services: Exam Narrative: APPEARANCE: morbidly obese, comfortable sitting in the chair. EYES: EOMI HEENT: Normocephalic, atraumatic, OMM RESPIRATORY: No respiratory distress Clear to auscultation bilaterally with no rhonchi wheezing or rales. CARDIOVASCULAR: RRR, S1 and S2 without murmurs rubs or gallops. ABDOMINAL: Abdominal distension, Soft, nontender, nondistended, no rebound or guarding MSK: Range of motion is normal NEURO: Awake and alert. Following commands, speech normal, no focal deficits SKIN:: Warm, dry. No rashes lesions or abrasions PSYCHIATRIC: Bright affect DS: Data Data Completed and Pending Labs on day of discharge: Labs from last 24 hours 04/15/25 04/15/25 04/15/25 15:33 11:19 07:23 Sodium Potassium 3.8 Chloride Carbon Dioxide Anion Gap BUN Creatinine Estim Creat Clear Calc Estimated GFR Glucose POC Capillary Glucose 90 90 Calcium Total Bilirubin AST ALT Alkaline Phosphatase Total Protein Albumin 04/15/25 04/14/25 04/14/25 04:14 20:36 16:27 Sodium 137 Potassium 3.0 L Chloride 106 Carbon Dioxide 25 Anion Gap 6 BUN 24 H Creatinine 1.35 H Estim Creat Clear Calc 55 Estimated GFR 51 L Glucose 96 POC Capillary Glucose 89 117 H Calcium 8.4 Total Bilirubin 0.2 AST 19 ALT 9 Alkaline Phosphatase 57 Total Protein 5.7 L Albumin 2.9 L 04/14/25 16:26 Sodium Potassium Chloride Carbon Dioxide Anion Gap BUN Creatinine Estim Creat Clear Calc Estimated GFR Glucose POC Capillary Glucose 106 H Calcium Total Bilirubin AST ALT Alkaline Phosphatase Total Protein Albumin Preliminary micro results at discharge 04/12/25 14:04 - Preliminary Urine Clean Catch Gram negative bacilli isolated Discharge Plan Discharge Attending physician on discharge: Flako Moreno Discharging Clinician: Renetta Saucedo Anticipated Discharge Date/Time: 04/15/25 15:55 Patient Disposition: SNF Activity: unlimited Diet: regular Discharge Instructions: You have acute kidney injury which is recovering quickly He did the blood work to check your kidney function in 1 week Follow-up with your PCP Patient Language: Croatian Stand Alone Forms: General Discharge Information Follow-up/Referrals: [facility] [Primary Care Provider, Medical] - 1 Week Discharge Medications: New cephalexin 500 mg capsule 500 mg PO Q8H Qty: 12 0RF Continued pantoprazole 40 mg tablet,delayed release (DR/EC) 40 mg PO Q12H meloxicam 7.5 mg tablet 7.5 mg PO DAILY verapamil 240 mg tablet extended release 240 mg PO QPM rosuvastatin 10 mg tablet 5 mg PO DAILY hydrochlorothiazide 25 mg tablet 25 mg PO DAILY Banatrol Plus Powder In Packet 1 ea PO TID baclofen 10 mg tablet 10 mg PO TID multivitamin [Daily Multi-Vitamin] Tablet 1 tablet PO DAILY semaglutide (weight loss) 0.5 mg/0.5 mL pen injector 0.5 mg subcut Q7D Patient Comments: wednesdays simethicone [Gas-X Extra Strength] 125 mg capsule 250 mg PO BID PRN (Reason: abdominal distention) Rx Instructions: administer after meals loperamide [Anti-Diarrheal (loperamide)] 2 mg capsule 2 mg PO TID PRN (Reason: loose stool) ondansetron 4 mg tablet,disintegrating 4 mg translingual Q6H PRN (Reason: nausea and vomiting) magnesium hydroxide [[place] Milk of Magnesia] 400 mg/5 mL suspension 30 ml PO ONCE PRN (Reason: constipation) Rx Instructions: if no bm in 3 days bisacodyl [Dulcolax (bisacodyl)] 10 mg suppository 10 mg RECTAL DAILY PRN (Reason: constipation) Rx Instructions: give if no result with milk of magnesia simethicone [Gas Relief (simethicone)] 80 mg tablet,chewable 160 mg PO BID PRN (Reason: abdominal distention) Rx Instructions: after meals acetaminophen [Tylenol] 325 mg tablet 650 mg PO Q4H PRN (Reason: fever or pain) Enema 19-7 gram/118 mL enema 118 ml RECTAL ONCE PRN (Reason: constipation) Rx Instructions: give once if no results 1 day after suppository magnesium citrate [Citroma] Solution 296 ml PO HS PRN (Reason: constipation) Rx Instructions: give in am if no results from enema silver-calcium alginate [PIVOT Silver Alginate] 1 ea topical BID Rx Instructions: CLEANSE MID BACK WOUND W/ WOUND CLEANSER AND APPLY SILVER ALGINATE WITH A BORDER DRESSING QD AND PM AND PRN Date of admission: 04/12/25 17:41 Primary Care Provider: [facility] Admitting Provider: Flako Moreno Attending physician on admission: Flako Moreno Condition: Stable
[2025-04-15] MEDS: VERAPAMIL HCL ER 240 MG TABLET.ER PO (17:03)
== END 2025-04-15 18:25 | DRG 690 ==
LOC: ANHED 17:39 → ANH2MED 19:01
PROVIDERS: Nurse Practitioner Gerontology; Admitting Provider General Practice; Emergency Provider Emergency Medicine; Visit Provider Student in an Organized Health Care Education/Training Program
DX: N39.0 Urinary tract infection, site not specified (principal); N17.9 Acute kidney failure, unspecified; I67.81 Acute cerebrovascular insufficiency; B96.4 Proteus (mirabilis) (morganii) as the cause of diseases classified elsewhere; E78.5 Hyperlipidemia, unspecified; R73.9 Hyperglycemia, unspecified; I10 Essential (primary) hypertension; E66.01 Morbid (severe) obesity due to excess calories; E87.6 Hypokalemia; E86.0 Dehydration; R19.7 Diarrhea, unspecified; F10.21 Alcohol dependence, in remission; Z20.822 Contact with and (suspected) exposure to COVID-19; Z68.36 Body mass index [BMI] 36.0-36.9, adult; Z96.643 Presence of artificial hip joint, bilateral; Z87.891 Personal history of nicotine dependence
CPT/HCPCS: 36415; 71045; 80048; 80053; 81001; 82948; 83036; 83690; 84132; 85025; 87086; 87637; 96361; 96365; 96375; 97161; 97165; 99199; 99285; A9270; J0696; J1650; J1956; J2405; J2470; J7030